=== PATIENT | female | born 1990 | race Caucasian/White ===

== ENCOUNTER 2017-11-22 13:23 | Emergency (ER) | payer BC ==
[~2017-11-22] VITALS: Ht 165.1 cm; Wt 146.7 kg
[~2017-11-22 13:23] MED LIST: ALBUAER19 INH; LEVOIUD
[2017-11-22 13:26] VITALS: TEMP 36.4; Ht 165.1 cm; Wt 146.7 kg
[2017-11-22] MEDS ORDERED: SODIUM CHLORIDE 0.9% 1000ML 1,000 ML IV STA (13:43)
[2017-11-22] MEDS ORDERED: ONDANSETRON INJ 2 MG/ML 2 ML VIAL IV STA (13:43)
[2017-11-22] MEDS ORDERED: MoRPHine SULFATE 10 MG/ML CARP/VIAL IV PRN (13:45)
[2017-11-22] MEDS ORDERED: MoRPHine SULFATE 2 MG/ML CARP ONE (13:47)
[2017-11-22] MEDS ORDERED: ONDANSETRON INJ 2 MG/ML 2 ML VIAL ONE (13:47)
[2017-11-22] MEDS ORDERED: MoRPHine SULFATE 4 MG/ML 1 ML CARP\\VIAL ONE (13:47)
--- NOTE | 2017-11-22 13:51 | EMERGENCY ROOM VISIT NOTE ---
History Report prepared by Daniela: Cristiana Robbins Under the Supervision of: Dr. Hector Genao M.D. First contact with patient: 13:40 Chief Complaint: KIDNEY STONE Stated Complaint: KIDNEY PAIN, RIGHT, SHARP History of Present Illness The patient is a 27 year old female who presents to the Emergency Room with complaints of sudden severe shooting right flank pain beginning about 30 minutes ago. The patient has nausea and vomiting. She had gastric sleeve surgery 20 days ago. She denies any complications since the surgery. The patient has a history of kidney stones. Her last kidney stone was about 9 months ago. She states her pain feels similar to when she has had kidney stones in the past. The patient is not allowed to have nsaids since her surgery. She denies any chance of . Source of History: patient Onset: 30 minutes ago Position: other (right flank) Symptom Intensity: severe Quality: other (shooting) Timing: other (sudden) Associated Symptoms: + nausea, + vomiting Review of Systems See HPI for pertinent positives & negatives. A total of 10 systems reviewed and were otherwise negative. Past Medical & Surgical Medical Problems: (1) Cyst of ovary (2) IBS (irritable bowel syndrome) (3) Intractable nausea and vomiting (4) Kidney stones (5) Pneumonia Surgical Problems: (1) History of cholecystectomy (2) Gattman Teeth Removal Family History FH: cancer FH: heart disease Hypertension Kidney disease Kidney stones Social History Smoking Status: Never Smoker Alcohol Use: occasionally Marital Status: in relationship Housing Status: lives with significant other Occupation Status: employed Current/Historical Medications Scheduled Adalimumab (Humira Pen), 1 DOSE INJ WK Calcium Carbonate-Vitamin D (Calcium + D), 1 TAB PO DAILY Cholecalciferol (Vitamin D), 5,000 UNITS PO DAILY Multivitamin (Multivitamin), 1 TAB PO DAILY Ondasetron Odt (Zofran Odt), 4 MG SL Q6H Pantoprazole (Pantoprazole Sodium), 40 MG PO DAILY Pediatric Multiple Vitamins W/ (Flintstones Plus Iron), 1 TAB PO DAILY Scheduled PRN Albuterol Hfa (Ventolin Hfa), 2-4 PUFFS INH Q6H PRN for SOB/Wheezing Oxycodone Ir (Roxicodone Ir), 1-2 TAB PO Q4H PRN for Pain Miscellaneous Medications Levonorgestrel (Iud) (Mirena), 1 DOSE Allergies Coded Allergies: NO KNOWN DRUG ALLERGIES (Verified Allergy, Mild, ., 11/22/17) Banana (Unverified Allergy, Unknown, ., 11/22/17) Uncoded Allergies: SEAFOOD (Allergy, Severe, ANAPHYLAXIS, 08/18/13) Physical Exam Vital Signs Date Time Temp Pulse Resp B/P (MAP) Pulse Ox O2 Delivery O2 Flow Rate FiO2 11/22/17 14:50 79 16 116/70 94 Room Air 11/22/17 14:39 94 Room Air 11/22/17 14:38 74 18 109/67 93 Room Air 11/22/17 13:26 36.4 82 18 164/94 99 Room Air Physical Exam GENERAL: Patient is in significant distress secondary to pain. HEENT: No acute trauma, normocephalic atraumatic, mucous membranes moist, no nasal congestion, no scleral icterus. NECK: No stridor, no adenopathy, no meningismus, trachea is midline. LUNGS: Clear to auscultation bilaterally, no wheeze, no rhonchi, breath sounds equal. HEART: Without murmurs gallops or rubs, regular rate and rhythm. ABDOMEN: Soft, nontender, bowel sounds positive, no hernias, no peritonitis. BACK: Right flank discomfort with percussion. EXTREMITIES: No cyanosis or edema, full range of motion of all the joints without pain or difficulty, no signs for acute trauma. NEUROLOGIC: Oriented x 3, no acute motor or sensory deficits, no focal weakness. SKIN: No rash, no jaundice, no diaphoresis. Medical Decision & Procedures ER Provider Diagnostic Interpretation: Radiology results as stated below per my review and radiologist interpretation: ABD/PELVIS WITHOUT FOR STONE FINDINGS: Slotter Operator topogram: Cholecystectomy clips. Lung bases: Minimal basilar opacities, likely atelectasis. Normal heart size. No pericardial or pleural effusion. Liver: Normal morphology. Density consistent with hepatic steatosis. Biliary: No gross biliary ductal dilatation allowing for noncontrast technique. Gallbladder surgically absent. Pancreas: Mild parenchymal atrophy. Spleen: Normal noncontrast appearance. Adrenal glands: Normal noncontrast appearance. Kidneys and ureters: Normal noncontrast appearance of the renal parenchyma. No nephrolithiasis. Mild right pelvocaliectasis in comparison to the left. A punctate right ureteral calculus (series 3 image 252) is at the level of L4. No significant distention of the right proximal ureter. Left ureter is normal.. Bladder: Normal. Pelvic organs: An intrauterine device is in place. A metallic foreign body in the left adnexa is unchanged from prior. Normal noncontrast appearance of the ovaries. Bowel: Normal appendix. No bowel obstruction. Postsurgical changes of gastric sleeve. The gastric remnant is distended with soft tissue density material. No gas is noted within the gastric remnant to suggest a gastrogastric fistula. No evidence of leak. Peritoneal cavity: No free fluid or intraperitoneal gas. Lymph nodes: No gross lymphadenopathy allowing for noncontrast technique. Vasculature: Normal noncontrast appearance. Abdominal wall: Small fat-containing umbilical hernia. Postsurgical changes with several port sites evident in the upper abdomen. Musculoskeletal: 10 mm of grade 2 anterolisthesis of L4 on L5 secondary to bilateral pars defects of L4. IMPRESSION: 1. Obstructing punctate proximal right ureteral calculus with minimal right hydronephrosis. 2. Postsurgical changes of gastric sleeve. The gastric remnant is distended with soft tissue density material. This may represent postsurgical hematoma or secretions. No evidence of leak or gastrogastric fistula. 3. Hepatic steatosis. Electronically signed by: Angel Johnston M.D. Laboratory Results 11/22/17 13:39 11/22/17 13:39 Test 11/22/17 13:39 11/22/17 14:35 11/22/17 14:57 Red Blood Count 4.29 M/uL (4.2-5.4) Mean Corpuscular Volume 90.4 fL (80-100) Mean Corpuscular Hemoglobin 29.6 pg (25-34) Mean Corpuscular Hemoglobin Concent 32.7 g/dl (32-36) RDW Standard Deviation 49.7 fL (36.4-46.3) RDW Coefficient of Variation 15.5 % (11.5-14.5) Mean Platelet Volume 9.3 fL (7.4-10.4) Anion Gap 9.0 mmol/L (3-11) Est Creatinine Clear Calc Drug Dose 142.8 ml/min Estimated GFR () 106.6 Estimated GFR (Non- 91.9 BUN/Creatinine Ratio 8.9 (10-20) Calcium Level 9.0 mg/dl (8.5-10.1) Total Bilirubin 0.6 mg/dl (0.2-1) Aspartate Amino Transf (AST/SGOT) 26 U/L (15-37) Alanine Aminotransferase (ALT/SGPT) 33 U/L (12-78) Alkaline Phosphatase 69 U/L (45-117) Total Protein 7.8 gm/dl (6.4-8.2) Albumin 3.8 gm/dl (3.4-5.0) Globulin 4.0 gm/dl (2.5-4.0) Albumin/Globulin Ratio 1.0 (0.9-2) Lipase 130 U/L (73-393) Urine Color DK YELLOW Urine Appearance CLOUDY (CLEAR) Urine pH 5.0 (4.5-7.5) Urine Specific [place] 1.027 (1.000-1.030) Urine Protein 1+ (NEG) Urine Glucose (UA) NEG (NEG) Urine Ketones 3+ (NEG) Urine Occult Blood 3+ (NEG) Urine Nitrite NEG (NEG) Urine Bilirubin NEG (NEG) Urine Urobilinogen NEG (NEG) Urine Leukocyte Esterase TRACE (NEG) Laboratory results reviewed by me. Urine dip shows large ketones, 250 of blood , urine negative, and no signs of infection. Medications Administered Medications (Trade) Dose Ordered Sig/Tracey Route Start Time Stop Time Status Last Admin Dose Admin Ondansetron HCl (Zofran Inj) 4 mg NOW STAT IV 11/22/17 13:43 11/22/17 13:46 DC 11/22/17 13:49 4 MG Sodium Chloride 1,000 ml @ 999 mls/hr Q1H1M STAT IV 11/22/17 13:43 11/22/17 14:43 DC 11/22/17 13:53 999 MLS/HR Morphine Sulfate (MoRPHine SULFATE INJ) 6 mg Q15M PRN IV 11/22/17 13:45 12/06/17 13:44 11/22/17 14:49 6 MG Morphine Sulfate (MoRPHine SULFATE INJ) 4 mg STK-MED ONCE .ROUTE 11/22/17 13:47 11/22/17 13:48 DC 11/22/17 13:50 4 MG Morphine Sulfate (MoRPHine SULFATE INJ) 2 mg STK-MED ONCE .ROUTE 11/22/17 13:47 11/22/17 13:48 DC 11/22/17 13:50 2 MG ED Course 1341: The patient was evaluated in room C8. A complete history and physical exam was performed. 1343: Ordered Sodium Chloride 1000 ml @ 999 mls/hr IV, Zofran Inj 4 mg IV. 1345: Ordered Morphine Sulfate 6 mg IV. 1347: Ordered Zofran Inj 4 mg .ROUTE, Morphine Sulfate 2 mg .ROUTE, Morphine Sulfate 4 mg .ROUTE. 1452: The patient is feeling better and would like to go home. 1507: Reevaluated the patient. Discussed results and discharge instructions: She verbalized understanding and agreement. The patient is ready for discharge. Medical Decision Differential diagnoses include: Renal colic, bowel obstruction, UTI, pyelonephritis, renal failure, dehydration, musculoskeletal. There is no leukocytosis or concerning anemia. Urinalysis shows blood and some ketones consistent with the vomiting and stone passage, no signs for infection. Urine testing was negative. No significant electrolyte abnormality or kidney failure. There is no hepatitis or pancreatitis. Abdominal and pelvis CT shows a small right sided ureteral stone causing some mild hydronephrosis. The gastric sleeve over the stomach appears to be in position. The patient received IV saline, IV Zofran and IV morphine. She is feeling more comfortable. The patient is passing a very small right ureteral stone. She has dealt with this before. She does feel comfortable with discharge, I think this is reasonable. She will be on oxycodone, Zofran. She will strain all her urine. She will return for uncontrolled pain, vomiting or fever. She can follow with urology as an outpatient. [place] Drug Monitoring Program Search Results: patient reviewed within database Drug Monitoring Findings: Patient had recent hydrocodone prescription which is likely from recent gastric sleeve surgery. Medication Reconcilliation Current Medication List: was personally reviewed by me Blood Pressure Screening Patient's blood pressure: Elevated blood pressure Blood pressure disposition: Elevated BP felt to be situational Impression Primary Impression: Renal colic Additional Impression: Vomiting Scribe Attestation The scribe's documentation has been prepared under my direction and personally reviewed by me in its entirety. I confirm that the note above accurately reflects all work, treatment, procedures, and medical decision making performed by me. Departure Information Dispostion Home / Self-Care Prescriptions Ondasetron Odt (ZOFRAN ODT) 4 Mg Tab 4 MG SL Q6H for Nausea, #12 TAB Prov: Hector Genao M.D. 11/22/17 Oxycodone Ir (Roxicodone Ir) 5 Mg Tab 1-2 TAB PO Q4H Y for Pain, #8 TAB Prov: Hector Genao M.D. 11/22/17 Referrals Johana Jamison (PCP) Forms HOME CARE DOCUMENTATION FORM, IMPORTANT VISIT INFORMATION Patient Instructions [facility] Additional Instructions oxy ir 1-2 tab every 4 hours for pain tylenol for pain fluids rest strain all the urine zofran 1 tab every 6 hours for nausea return for fever, vomiting or uncontrolled pain follow with urology this week Problem Qualifiers
[2017-11-22 13:53] LABS: HEMATOCRIT 38.8 % (37-47); MEAN CELL VOLUME 90.4 fL (80-100); MEAN CORPUSCULAR HEMOGLOBIN 29.6 pg (25-34); MEAN CORPUSCULAR HGB CONC 32.7 g/dl (32-36); MEAN PLATELET VOLUME 9.3 fL (7.4-10.4); PLATELET COUNT 416 K/uL (130-400); RED BLOOD COUNT 4.29 M/uL (4.2-5.4); WHITE BLOOD COUNT 7.79 K/uL (4.8-10.8)
[2017-11-22 14:11] LABS: BUN/CREATININE RATIO 8.9 (10-20); CREATININE 0.86 mg/dl (0.60-1.20); POTASSIUM 3.7 mmol/L (3.5-5.1)
[2017-11-22] MEDS ORDERED: CHOL1TAB42 PO (14:35)
[2017-11-22] MEDS ORDERED: PEDICHW44 PO (14:35)
[2017-11-22] MEDS ORDERED: PANT40TA2 PO (14:35)
[2017-11-22] MEDS ORDERED: ADAL40KI INJ (14:35)
[2017-11-22] MEDS ORDERED: MULT-506 PO (14:35)
[2017-11-22] MEDS ORDERED: CALC600T9 PO (14:35)
[2017-11-22] MEDS ORDERED: VNTHFA/IN INH (14:35)
--- NOTE | 2017-11-22 14:36 | DIAGNOSTIC IMAGING REPORT ---
ABD/PELVIS WITHOUT FOR STONE CLINICAL HISTORY: 27 years-old Female presenting with EVALUATE FLANK PAIN/HEMATURIA that started 30 minutes ago, accompanied by nausea and vomiting, history of kidney stones, history of gastric sleeve surgery early October. TECHNIQUE: Multidetector CT of the abdomen and pelvis was performed without the use of intravenous contrast. IV contrast: None. A dose lowering technique was used consistent with the principles of ALARA (as low as reasonably achievable). COMPARISON: 01/10/2016. CT DOSE (mGy.cm): The estimated cumulative dose is 1853.08 mGy.cm. FINDINGS: Legal Biller topogram: Cholecystectomy clips. Lung bases: Minimal basilar opacities, likely atelectasis. Normal heart size. No pericardial or pleural effusion. Liver: Normal morphology. Density consistent with hepatic steatosis. Biliary: No gross biliary ductal dilatation allowing for noncontrast technique. Gallbladder surgically absent. Pancreas: Mild parenchymal atrophy. Spleen: Normal noncontrast appearance. Adrenal glands: Normal noncontrast appearance. Kidneys and ureters: Normal noncontrast appearance of the renal parenchyma. No nephrolithiasis. Mild right pelvocaliectasis in comparison to the left. A punctate right ureteral calculus (series 3 image 252) is at the level of L4. No significant distention of the right proximal ureter. Left ureter is normal.. Bladder: Normal. Pelvic organs: An intrauterine device is in place. A metallic foreign body in the left adnexa is unchanged from prior. Normal noncontrast appearance of the ovaries. Bowel: Normal appendix. No bowel obstruction. Postsurgical changes of gastric sleeve. The gastric remnant is distended with soft tissue density material. No gas is noted within the gastric remnant to suggest a gastrogastric fistula. No evidence of leak. Peritoneal cavity: No free fluid or intraperitoneal gas. Lymph nodes: No gross lymphadenopathy allowing for noncontrast technique. Vasculature: Normal noncontrast appearance. Abdominal wall: Small fat-containing umbilical hernia. Postsurgical changes with several port sites evident in the upper abdomen. Musculoskeletal: 10 mm of grade 2 anterolisthesis of L4 on L5 secondary to bilateral pars defects of L4. IMPRESSION: 1. Obstructing punctate proximal right ureteral calculus with minimal right hydronephrosis. 2. Postsurgical changes of gastric sleeve. The gastric remnant is distended with soft tissue density material. This may represent postsurgical hematoma or secretions. No evidence of leak or gastrogastric fistula. 3. Hepatic steatosis. Electronically signed by: Angel Johnston M.D. 11/22/2017 2:34 PM Dictated Date/Time: 11/22/2017 2:26 PM
[2017-11-22 14:39] VITALS: O2SAT 94
[2017-11-22 14:50] VITALS: BP 116/70; PULSE 79; O2SAT 94
[2017-11-22 14:53] LABS: URINE APPEARANCE CLOUDY (CLEAR); URINE COLOR DK YELLOW; URINE EPITHELIAL CELL AUTO >30 /lpf (0-5); URINE NITRITE NEG (NEG); URINE SPECIFIC GRAVITY 1.027 (1.000-1.030); UROBILINOGEN NEG (NEG); ZZUR CULT IF INDIC CLEAN CATCH YES
[2017-11-22 14:54] LABS: MANUAL MICROSCOPIC REQUIRED? NO; REVIEW REQ? YES
[2017-11-22 14:55] LABS: URINE BILIRUBIN NEG (NEG)
[2017-11-22] MEDS ORDERED: ONDANSETRON HOME PACK 4MG OD TAB PO ONE (15:00)
[2017-11-22] MEDS ORDERED: OXYCODONE IR HOME PACK PO ONE ×2 (15:00)
[2017-11-22] MEDS ORDERED: ONDA4TAB10 SL (15:02)
[2017-11-22] MEDS ORDERED: OXYC1TAB3 PO (15:02)
== END 2017-11-22 15:14 | disposition home or self-care (01) ==
LOC: C.EDB 13:24 → C.EDC 15:14
DX: N13.2 Hydronephrosis with renal and ureteral calculous obstruction (principal); K76.0 Fatty (change of) liver, not elsewhere classified; Z98.84 Bariatric surgery status; K58.9 Irritable bowel syndrome, unspecified

== ENCOUNTER 2018-02-14 06:23 | Emergency (ER) | payer BC ==
[~2018-02-14] VITALS: Ht 165.1 cm; Wt 130.0 kg
[~2018-02-14 06:23] MED LIST changes: +ADAL40KI INJ; -ALBUAER19 INH; +CALC600T9 PO; +CHOL1TAB42 PO; +LEVO1IUD2 INT UTER; -LEVOIUD; +MULT-506 PO; +ONDA4TAB10 SL; +OXYC1TAB3 PO; +PANT40TA2 PO; +PEDICHW44 PO; +VNTHFA/IN INH
[2018-02-14 06:26] VITALS: TEMP 36.6; Ht 165.1 cm; Wt 130.0 kg
[2018-02-14] MEDS ORDERED: KETOROLAC TROMETHAMINE 30 MG/ML VIAL IV STA (06:37)
[2018-02-14] MEDS ORDERED: ONDANSETRON INJ 2 MG/ML 2 ML VIAL IV STA (06:37)
[2018-02-14] MEDS ORDERED: SODIUM CHLORIDE 0.9% 1000ML 1,000 ML IV STA (06:37)
[2018-02-14 06:50] LABS: BASO % 0.5 %; BASO ABS # 0.05 K/uL (0-0.2); EOS % 5.2 %; HEMATOCRIT 43.9 % (37-47); HEMOGLOBIN 14.1 g/dL (12.0-16.0); IG# 0.02 K/uL (0.00-0.02); LYMPH % 23.9 %; MEAN CELL VOLUME 85.7 fL (80-100); MEAN CORPUSCULAR HEMOGLOBIN 27.5 pg (25-34); MEAN CORPUSCULAR HGB CONC 32.1 g/dl (32-36); MEAN PLATELET VOLUME 10.2 fL (7.4-10.4); MONO % 5.4 %; MONO ABS # 0.52 K/uL (0.11-0.59); NEUT % 64.8 %; NEUT ABS # 6.25 K/uL (1.4-6.5); PLATELET COUNT 326 K/uL (130-400); RED CELL DISTRIBUTION WIDTH CV 17.5 % (11.5-14.5); RED CELL DISTRIBUTION WIDTH SD 55.3 fL (36.4-46.3); WHITE BLOOD COUNT 9.64 K/uL (4.8-10.8)
[2018-02-14 07:07] LABS: ALBUMIN 3.8 gm/dl (3.4-5.0); CALCIUM 9.5 mg/dl (8.5-10.1); CREATININE 0.69 mg/dl (0.60-1.20)
[2018-02-14 07:10] LABS: TOTAL PROTEIN 7.8 gm/dl (6.4-8.2)
--- NOTE | 2018-02-14 07:28 | DIAGNOSTIC IMAGING REPORT ---
ABD/PELVIS WITHOUT FOR STONE CLINICAL HISTORY: 27 years-old Female presenting with flank pain. TECHNIQUE: Multidetector CT of the abdomen and pelvis was performed without the use of intravenous contrast. IV contrast: None. A dose lowering technique was used consistent with the principles of ALARA (as low as reasonably achievable). COMPARISON: 11/22/2017. CT DOSE (mGy.cm): The estimated cumulative dose is 2095.96 mGy.cm. FINDINGS: Project Management Intern topogram: Unremarkable. Lung bases: Lungs and pleural spaces clear. Normal heart size. No pericardial or pleural effusion. Liver: Normal morphology. Density consistent with hepatic steatosis. Biliary: No gross biliary ductal dilatation allowing for noncontrast technique. Gallbladder surgically absent. Pancreas: Normal noncontrast appearance. Spleen: Normal noncontrast appearance. Splenule noted. Adrenal glands: Normal noncontrast appearance. Kidneys and ureters: Minimal right pelvocaliectasis similar to prior exam. Persistent punctate calculus in the proximal right ureter, which does not appear to be obstructing (series 3 image 217). No additional renal or ureteral calculus. Bladder: Incompletely evaluated secondary to underdistention. Pelvic organs: An intrauterine device is in place. A surgical clip is noted in the region of the left adnexa. Bowel: Normal appendix. No bowel obstruction. Postsurgical changes of gastric sleeve procedure. There has also been resolution of the previously noted presumed hematoma in the operative bed at the site of the previously supposed gastric remnant. Only a small hyperdense collection measuring less than 2 cm remains. No bowel obstruction. Peritoneal cavity: No free fluid or intraperitoneal gas. Lymph nodes: No gross lymphadenopathy allowing for noncontrast technique. Vasculature: Normal noncontrast appearance. Abdominal wall: Small fat-containing umbilical hernia. Musculoskeletal: Grade 2 anterolisthesis of L4 on L5 secondary to bilateral pars defects of L4.. IMPRESSION: 1. Near-complete resolution of the previously noted presumed hematoma in the gastric sleeve operative bed. No bowel obstruction or other complication of gastric sleeve procedure. 2. Persistent punctate proximal right ureteral calculus, which does not appear obstructing. No right hydronephrosis. Chronic minimal right pelvocaliectasis. No additional renal or ureteral calculus. 3. Hepatic steatosis. Electronically signed by: Angel Johnston M.D. 02/14/2018 7:27 AM Dictated Date/Time: 02/14/2018 7:18 AM
[2018-02-14] MEDS ORDERED: ONDA4TAB10 SL (07:42)
--- NOTE | 2018-02-14 07:49 | EMERGENCY ROOM VISIT NOTE ---
History Report prepared by Alison[place]keke: Burke Scott Under the Supervision of: Dr. Bill Cota D.O. First contact with patient: 06:34 Chief Complaint: FLANK PAIN Stated Complaint: RT KIDNEY PAIN,NAUSEA,VOMITING History of Present Illness The patient is a 27 year old female who presents to the Emergency Room with complaints of constant right flank pain beginning 6.5 hours ago. She has a history of kidney stones and states that her current symptoms feel like a kidney stone. The patient also complains of diarrhea over the past few days, nausea and vomiting. Her nausea and vomiting began with her pain. Her pain began suddenly. She denies modifying factors. The patient denies fevers. She has a history of a recent vertical sleeve bariatric surgery occurring three months ago. Source of History: patient Onset: 6.5 hours ago Position: other (right flank) Timing: constant Modifying Factors (Worsening): other (none) Modifying Factors (Relieving): other (none) Associated Symptoms: + nausea, + vomiting, + diarrhea, No fevers Review of Systems See HPI for pertinent positives & negatives. A total of 10 systems reviewed and were otherwise negative. Past Medical & Surgical Medical Problems: (1) Cyst of ovary (2) IBS (irritable bowel syndrome) (3) Intractable nausea and vomiting (4) Kidney stones (5) Pneumonia Surgical Problems: (1) History of cholecystectomy (2) [place] Teeth Removal Family History FH: cancer FH: heart disease Hypertension Kidney disease Kidney stones Social History Smoking Status: Never Smoker Alcohol Use: occasionally Marital Status: in relationship Housing Status: lives with significant other Occupation Status: employed Current/Historical Medications Scheduled Adalimumab (Humira Pen), 1 DOSE INJ WK Calcium Carbonate-Vitamin D (Calcium + D), 1 TAB PO DAILY Cholecalciferol (Vitamin D), 5,000 UNITS PO DAILY Levonorgestrel (Iud) (Mirena), 1 DOSE INT UTER CONTINOUS Multivitamin (Multivitamin), 1 TAB PO DAILY Ondasetron Odt (Zofran Odt), 4 MG SL Q6H Pantoprazole (Pantoprazole Sodium), 40 MG PO DAILY Pediatric Multiple Vitamins W/ (Flintstones Plus Iron), 1 TAB PO DAILY Scheduled PRN Albuterol Hfa (Ventolin Hfa), 2 PUFFS INH Q6H PRN for SOB/Wheezing Allergies Coded Allergies: NO KNOWN DRUG ALLERGIES (Verified Allergy, Mild, ., 02/14/18) Banana (Unverified Allergy, Unknown, ., 02/14/18) Uncoded Allergies: SEAFOOD (Allergy, Severe, ANAPHYLAXIS, 08/18/13) Physical Exam Vital Signs Date Time Temp Pulse Resp B/P (MAP) Pulse Ox O2 Delivery O2 Flow Rate FiO2 02/14/18 07:24 55 16 110/60 94 Room Air 02/14/18 06:26 36.6 72 20 121/89 97 Room Air Physical Exam CONSTITUTIONAL/VITAL SIGNS: Reviewed / noted above. GENERAL: Non-toxic in appearance. INTEGUMENTARY: Warm, dry, and [place]. HEAD: Normocephalic. EYES: without scleral icterus or trauma. ENT/OROPHARYNX: clear and moist. LYMPHADENOPATHY/NECK: Is supple without lymphadenopathy or meningismus. RESPIRATORY: Lungs clear and equal. CARDIOVASCULAR: Regular rate and rhythm. GI/ABDOMEN: Soft and nontender. No organomegaly or pulsatile mass. No rebound or guarding. Normal bowel sounds. EXTREMITIES: Warm and well perfused. BACK: Right CVA tenderness. NEUROLOGICAL: Intact without focal deficits. PSYCHIATRIC: normal affect. MUSCULOSKELETAL: Normally developed with good muscle tone. Medical Decision & Procedures ER Provider Diagnostic Interpretation: Radiology results as stated below per my review and radiologist interpretation: ABD/PELVIS WITHOUT FOR STONE FINDINGS: [employer] Director topogram: Unremarkable. Lung bases: Lungs and pleural spaces clear. Normal heart size. No pericardial or pleural effusion. Liver: Normal morphology. Density consistent with hepatic steatosis. Biliary: No gross biliary ductal dilatation allowing for noncontrast technique. Gallbladder surgically absent. Pancreas: Normal noncontrast appearance. Spleen: Normal noncontrast appearance. Splenule noted. Adrenal glands: Normal noncontrast appearance. Kidneys and ureters: Minimal right pelvocaliectasis similar to prior exam. Persistent punctate calculus in the proximal right ureter, which does not appear to be obstructing (series 3 image 217). No additional renal or ureteral calculus. Bladder: Incompletely evaluated secondary to underdistention. Pelvic organs: An intrauterine device is in place. A surgical clip is noted in the region of the left adnexa. Bowel: Normal appendix. No bowel obstruction. Postsurgical changes of gastric sleeve procedure. There has also been resolution of the previously noted presumed hematoma in the operative bed at the site of the previously supposed gastric remnant. Only a small hyperdense collection measuring less than 2 cm remains. No bowel obstruction. Peritoneal cavity: No free fluid or intraperitoneal gas. Lymph nodes: No gross lymphadenopathy allowing for noncontrast technique. Vasculature: Normal noncontrast appearance. Abdominal wall: Small fat-containing umbilical hernia. Musculoskeletal: Grade 2 anterolisthesis of L4 on L5 secondary to bilateral pars defects of L4.. IMPRESSION: 1. Near-complete resolution of the previously noted presumed hematoma in the gastric sleeve operative bed. No bowel obstruction or other complication of gastric sleeve procedure. 2. Persistent punctate proximal right ureteral calculus, which does not appear obstructing. No right hydronephrosis. Chronic minimal right pelvocaliectasis. No additional renal or ureteral calculus. 3. Hepatic steatosis. Electronically signed by: Angel Johnston M.D. 02/14/2018 7:27 AM Laboratory Results 02/14/18 06:35 Red Blood Count 5.12, Mean Corpuscular Volume 85.7, Mean Corpuscular Hemoglobin 27.5, Mean Corpuscular Hemoglobin Concent 32.1, Mean Platelet Volume 10.2, Neutrophils (%) (Auto) 64.8, Lymphocytes (%) (Auto) 23.9, Monocytes (%) (Auto) 5.4, Eosinophils (%) (Auto) 5.2, Basophils (%) (Auto) 0.5, Neutrophils # (Auto) 6.25, Lymphocytes # (Auto) 2.30, Monocytes # (Auto) 0.52, Eosinophils # (Auto) 0.50, Basophils # (Auto) 0.05 02/14/18 06:35 Test 02/14/18 06:35 02/14/18 06:40 White Blood Count 9.64 K/uL (4.8-10.8) Red Blood Count 5.12 M/uL (4.2-5.4) Hemoglobin 14.1 g/dL (12.0-16.0) Hematocrit 43.9 % (37-47) Mean Corpuscular Volume 85.7 fL (80-100) Mean Corpuscular Hemoglobin 27.5 pg (25-34) Mean Corpuscular Hemoglobin Concent 32.1 g/dl (32-36) Platelet Count 326 K/uL (130-400) Mean Platelet Volume 10.2 fL (7.4-10.4) Neutrophils (%) (Auto) 64.8 % Lymphocytes (%) (Auto) 23.9 % Monocytes (%) (Auto) 5.4 % Eosinophils (%) (Auto) 5.2 % Basophils (%) (Auto) 0.5 % Neutrophils # (Auto) 6.25 K/uL (1.4-6.5) Lymphocytes # (Auto) 2.30 K/uL (1.2-3.4) Monocytes # (Auto) 0.52 K/uL (0.11-0.59) Eosinophils # (Auto) 0.50 K/uL (0-0.5) Basophils # (Auto) 0.05 K/uL (0-0.2) RDW Standard Deviation 55.3 fL (36.4-46.3) RDW Coefficient of Variation 17.5 % (11.5-14.5) Immature Granulocyte % (Auto) 0.2 % Immature Granulocyte # (Auto) 0.02 K/uL (0.00-0.02) Anion Gap 10.0 mmol/L (3-11) Est Creatinine Clear Calc Drug Dose 165.2 ml/min Estimated GFR () 137.3 Estimated GFR (Non- 118.5 BUN/Creatinine Ratio 15.3 (10-20) Calcium Level 9.5 mg/dl (8.5-10.1) Total Bilirubin 0.4 mg/dl (0.2-1) Direct Bilirubin 0.1 mg/dl (0-0.2) Aspartate Amino Transf (AST/SGOT) 15 U/L (15-37) Alanine Aminotransferase (ALT/SGPT) 23 U/L (12-78) Alkaline Phosphatase 81 U/L (45-117) Total Protein 7.8 gm/dl (6.4-8.2) Albumin 3.8 gm/dl (3.4-5.0) Lipase 82 U/L (73-393) Urine Color DK YELLOW Urine Appearance CLOUDY (CLEAR) Urine pH 5.0 (4.5-7.5) Urine Specific [place] 1.036 (1.000-1.030) Urine Protein 1+ (NEG) Urine Glucose (UA) NEG (NEG) Urine Ketones 1+ (NEG) Urine Occult Blood 3+ (NEG) Urine Nitrite NEG (NEG) Urine Bilirubin NEG (NEG) Urine Urobilinogen NEG (NEG) Urine Leukocyte Esterase NEG (NEG) Urine WBC (Auto) 1-5 /hpf (0-5) Urine RBC (Auto) >30 /hpf (0-4) Urine Hyaline Casts (Auto) 1-5 /lpf (0-5) Urine Epithelial Cells (Auto) >30 /lpf (0-5) Urine Bacteria (Auto) NEG (NEG) Urine Crystals CALCIUM OXALATE (NONE Urine Test NEG (NEG) Laboratory results as stated above per my review. Medications Administered Medications (Trade) Dose Ordered Sig/Tracey Route Start Time Stop Time Status Last Admin Dose Admin Sodium Chloride 1,000 ml @ 999 mls/hr Q1H1M STAT IV 02/14/18 06:37 02/14/18 07:37 DC 02/14/18 07:03 999 MLS/HR Ondansetron HCl (Zofran Inj) 4 mg NOW STAT IV 02/14/18 06:37 02/14/18 06:39 DC 02/14/18 07:00 4 MG Ketorolac Tromethamine (Toradol Inj) 30 mg NOW STAT IV 02/14/18 06:37 02/14/18 06:39 DC 02/14/18 07:01 30 MG ED Course 0641: Previous medical records were reviewed. The patient was evaluated in room A3. A complete history and physical examination was performed. Ordered Toradol Inj 30 mg IV, Zofran Inj 4 mg IV, Sodium Chloride 1000 ml @ 999 mls/hr IV. 0745: On reevaluation, the patient is resting. I discussed the results and findings with the patient. She verbalized agreement of the treatment plan. The patient was discharged home. Medical Decision Differential diagnosis: Etiologies such as renal colic, appendicitis, diverticulitis, mesenteric ischemia, aortic pathology, infections, inflammatory bowel disease, PUD, biliary pathology, UTI, as well as others were entertained. This is a 27-year-old female who presents to the ED with a chief complaint of right sided flank pain. The patient also reported some nausea and vomiting that started with the right sided flank pain around midnight last night. She also stated that she had some diarrhea which last occurred around 6 PM last night. The patient reports that nothing makes her symptoms better or worse. Her vital signs are normal. Her physical exam revealed some right-sided CVA tenderness. A CT scan of the abdomen pelvis reveals a persistent right ureteral calculus without obstructive changes and resolution of a hematoma related to her bariatric surgery in October. CBC and complete metabolic panel were normal, lipase was negative and a urine revealed 1+ ketones, calcium oxalate crystals and test was negative. The patient was treated with IV fluids, IV Toradol and IV Zofran. She was told the results of the test. The patient reports feeling better. She may have passed some small stones. She was discharged with a prescription for Zofran. She was told to take Tylenol as needed for any residual discomfort. Medication Reconcilliation Current Medication List: was personally reviewed by me Blood Pressure Screening Patient's blood pressure: Normal blood pressure Blood pressure disposition: Did not require urgent referral Impression Primary Impression: Right flank pain Additional Impression: Nausea and vomiting Scribe Attestation The scribe's documentation has been prepared under my direction and personally reviewed by me in its entirety. I confirm that the note above accurately reflects all work, treatment, procedures, and medical decision making performed by me. Departure Information Dispostion Home / Self-Care Prescriptions Ondasetron Odt (ZOFRAN ODT) 4 Mg Tab 4 MG SL Q6H for Nausea, #20 TAB Prov: Bill Cota D.O. 02/14/18 Referrals Johana Jamison (PCP) Patient Instructions My [facility] Additional Instructions Zofran: Allow one tablet to dissolve under the tongue every 6 hours as needed for nausea or vomiting. Take Tylenol as needed for any residual discomfort. Follow-up with your doctor for further care and evaluation in 1-5 days. Return to the emergency department for worsening or new symptoms or any concerns. You have been examined and treated today on an emergency basis only. This is not a substitute for, or an effort to provide, complete comprehensive medical care. It is impossible to recognize and treat all injuries or illnesses in a single emergency department visit. It is therefore important that you follow up closely with your doctor. Call as soon as possible for an appointment. Problem Qualifiers
[2018-02-14 08:22] VITALS: BP 117/63; PULSE 62; O2SAT 95
== END 2018-02-14 08:23 | disposition home or self-care (01) ==
LOC: C.EDB 06:24 → C.EDA 08:23
DX: N20.1 Calculus of ureter (principal); R19.7 Diarrhea, unspecified; K58.9 Irritable bowel syndrome, unspecified; Z97.5 Presence of (intrauterine) contraceptive device; Z90.49 Acquired absence of other specified parts of digestive tract; Z87.442 Personal history of urinary calculi; Z87.01 Personal history of pneumonia (recurrent); Z82.49 Family history of ischemic heart disease and other diseases of the circulatory system; Z84.1 Family history of disorders of kidney and ureter; Z91.013 Allergy to seafood

== ENCOUNTER → 2018-04-15 | Outpatient (CLI) | payer BC ==
[~2018-04-15] MED LIST changes: -OXYC1TAB3 PO
[2018-04-15 10:28] LABS: BASO % 0.6 %; BASO ABS # 0.05 K/uL (0-0.2); EOS % 2.6 %; EOS ABS # 0.21 K/uL (0-0.5); HEMATOCRIT 43.7 % (37-47); HEMOGLOBIN 14.5 g/dL (12.0-16.0); IG# 0.02 K/uL (0.00-0.02); LYMPH % 25.5 %; LYMPH ABS # 2.04 K/uL (1.2-3.4); MEAN CELL VOLUME 89.2 fL (80-100); MEAN CORPUSCULAR HEMOGLOBIN 29.6 pg (25-34); MEAN CORPUSCULAR HGB CONC 33.2 g/dl (32-36); MEAN PLATELET VOLUME 10.1 fL (7.4-10.4); MONO % 6.4 %; MONO ABS # 0.51 K/uL (0.11-0.59); NEUT % 64.6 %; NEUT ABS # 5.17 K/uL (1.4-6.5); PLATELET COUNT 307 K/uL (130-400); RED CELL DISTRIBUTION WIDTH CV 17.3 % (11.5-14.5); RED CELL DISTRIBUTION WIDTH SD 56.5 fL (36.4-46.3)
[2018-04-15 13:09] LABS: ALBUMIN 3.6 gm/dl (3.4-5.0); ALKALINE PHOSPHATASE 87 U/L (45-117); ALT/SGPT 30 U/L (12-78); AST/SGOT 19 U/L (15-37); BLOOD UREA NITROGEN 4 mg/dl (7-18); CARBON DIOXIDE 26 mmol/L (21-32); CREATININE 0.76 mg/dl (0.60-1.20); GLUCOSE 84 mg/dl (70-99); POTASSIUM 3.4 mmol/L (3.5-5.1); SODIUM 141 mmol/L (136-145); TOTAL PROTEIN 7.7 gm/dl (6.4-8.2)
== END | disposition home or self-care (01) ==
LOC: C.LAB 09:12
PROVIDERS: ATTEND Physician Assistant Surgical
DX: E66.01 Morbid (severe) obesity due to excess calories (principal); Z98.84 Bariatric surgery status

== ENCOUNTER 2018-06-24 11:03 | Emergency (ER) | payer BC ==
[~2018-06-24] VITALS: Ht 167.6 cm; Wt 111.7 kg
[~2018-06-24 11:03] MED LIST changes: -ADAL40KI INJ; -CALC600T9 PO; -CHOL1TAB42 PO; -LEVO1IUD2 INT UTER; -MULT-506 PO; -PEDICHW44 PO; -VNTHFA/IN INH
[2018-06-24 11:09] VITALS: TEMP 36.7; Ht 167.6 cm; Wt 111.7 kg
[2018-06-24] MEDS ORDERED: KETOROLAC TROMETHAMINE 30 MG/ML VIAL IV STA ×2 (11:17→17:22)
[2018-06-24] MEDS ORDERED: ONDANSETRON INJ 2 MG/ML 2 ML VIAL IV STA ×2 (11:17→16:26)
[2018-06-24] MEDS ORDERED: MoRPHine SULFATE 10 MG/ML CARP/VIAL IV STA ×3 (11:17→17:22)
[2018-06-24] MEDS ORDERED: SODIUM CHLORIDE 0.9% 1000ML 2,000 ML IV STA (11:17)
[2018-06-24 11:40] LABS: BASO % 0.5 %; BASO ABS # 0.05 K/uL (0-0.2); EOS % 3.5 %; EOS ABS # 0.35 K/uL (0-0.5); HEMATOCRIT 45.2 % (37-47); HEMOGLOBIN 14.9 g/dL (12.0-16.0); IG# 0.03 K/uL (0.00-0.02); LYMPH ABS # 2.99 K/uL (1.2-3.4); MEAN CORPUSCULAR HEMOGLOBIN 30.7 pg (25-34); MEAN PLATELET VOLUME 10.5 fL (7.4-10.4); MONO % 8.3 %; MONO ABS # 0.83 K/uL (0.11-0.59); NEUT % 57.4 %; NEUT ABS # 5.72 K/uL (1.4-6.5); PLATELET COUNT 306 K/uL (130-400); RED CELL DISTRIBUTION WIDTH CV 14.8 % (11.5-14.5); WHITE BLOOD COUNT 9.97 K/uL (4.8-10.8)
[2018-06-24 12:00] LABS: ALBUMIN 3.5 gm/dl (3.4-5.0); CALCIUM 8.5 mg/dl (8.5-10.1); CREATININE 0.73 mg/dl (0.60-1.20); POTASSIUM 3.9 mmol/L (3.5-5.1); TOTAL PROTEIN 7.4 gm/dl (6.4-8.2)
--- NOTE | 2018-06-24 12:03 | DIAGNOSTIC IMAGING REPORT ---
[facility] CLINICAL HISTORY: RIGHT FLANK PAIN, HX OF STONE pain COMPARISON STUDY: 07/13/2016 FINDINGS: Nonobstructive bowel pattern. Mild nonobstructive small bowel ileus primarily in the left abdominal region. No significant nephrocalcinosis within limitations of overlying bowel content. There is an intrauterine device in position. IMPRESSION: Mild nonobstructive ileus. No acute process. The above report was generated using voice recognition software. It may contain grammatical, syntax or spelling errors. Electronically signed by: Marcio Avalos M.D. 06/24/2018 12:02 PM Dictated Date/Time: 06/24/2018 12:00 PM
--- NOTE | 2018-06-24 13:28 | DIAGNOSTIC IMAGING REPORT ---
RENAL ULTRASOUND HISTORY: RIGHT FLANK PAIN, HX OF STONES COMPARISON: [facility] 06/24/2018. Renal ultrasound 07/13/2016. FINDINGS: Right kidney: 10.6 cm. No hydronephrosis. Normal corticomedullary differentiation and cortical thickness. Left kidney: 11.7 cm. No hydronephrosis. Normal corticomedullary differentiation and cortical thickness. Bladder: No bladder wall thickening. The bilateral ureteral jets were identified. IMPRESSION: Normal renal ultrasound. Electronically signed by: Varun Soliman M.D. 06/24/2018 1:26 PM Dictated Date/Time: 06/24/2018 1:24 PM
[2018-06-24] MEDS ORDERED: LEVO1IUD2 IU (14:01)
[2018-06-24] MEDS ORDERED: PEDICHW44 PO (14:35)
[2018-06-24] MEDS ORDERED: CHOL1TAB42 PO (14:35)
[2018-06-24] MEDS ORDERED: CALC600T9 PO (14:35)
[2018-06-24] MEDS ORDERED: VNTHFA/IN INH (14:35)
[2018-06-24] MEDS ORDERED: ADAL40KI SC (14:35)
[2018-06-24] MEDS ORDERED: MULT-506 PO (14:35)
[2018-06-24] MEDS ORDERED: SODIUM CHLORIDE 0.9% 1000ML 1,000 ML IV STA (16:26)
[2018-06-24] MEDS ORDERED: ONDANSETRON INJ 2 MG/ML 2 ML VIAL ONE (16:27)
[2018-06-24] MEDS ORDERED: BSP/5 PO (17:20)
[2018-06-24] MEDS ORDERED: LXP10 PO (17:20)
[2018-06-24] MEDS ORDERED: ONDA4TAB10 SL (17:25)
[2018-06-24] MEDS ORDERED: OXYC-737 PO (17:25)
--- NOTE | 2018-06-24 17:27 | EMERGENCY ROOM VISIT NOTE ---
ED Visit Note First contact with patient: 11:14 CHIEF COMPLAINT: Right flank pain 3 days HISTORY OF PRESENT ILLNESS: Patient is a 28-year-old female with past medical history significant for kidney stones presents the emergency department for evaluation of a sharp right flank pain with associated nausea and vomiting that started about 3 hours ago. Patient notes a 3 day history of an aching pain in her right mid back, she thought she was maybe developing a urinary tract infection. Today, about 3 hours ago the pain became very sharp and stabbing and began to radiate into the abdomen. She reports associated nausea and vomiting. She has not urinated in about 3 hours, but states that when she did void this morning urine was clear. She denies any dysuria, frequency, urgency or hematuria. She is status post gastric previously procedure, and reports that she "gets dehydrated easily." She has been feeling lightheaded since the increased pain. She rates her discomfort a 7/10. She has an IUD in place. She denies that she could be . REVIEW OF SYSTEMS: Review of systems as per HPI. All other systems reviewed were negative. 10 systems reviewed. PMH: Electronic medical records are reviewed and summarized as above/below. See Problem List. SOCIAL HISTORY: Patient lives at home with her spouse. Employed. Non-smoker. PHYSICAL EXAM: Vital Signs: Reviewed Nurse's notes. CONSTITUTIONAL: Patient is an obviously uncomfortable appearing 28-year-old female who is awake and alert and in moderate distress due to her right flank pain EYES: Pupils equal, round, reactive to light and accommodation. EOMs intact without nystagmus. Sclera are anicteric. ENT: Tympanic membranes intact, with normal landmarks. External canals are clear. Oral and nasopharynx are clear. Mucous membranes are moist, no lesions , tongue and gums appear normal. CARDIOVASCULAR: Regular rate and rhythm. Peripheral pulses easily palpable. RESPIRATORY: Breath sounds equal and clear to auscultation without wheezes, rales, or rhonchi heard. Full and equal chest expansion without accessory muscle use or retractions. ABDOMEN: Bowel sounds are present. Abdomen is soft, nondistended, nontender to palpation throughout. INTEGUMENTARY: No lesions or rash, normal skin turgor. LYMPH: No lymphadenopathy. EMERGENCY DEPARTMENT COURSE:. The patient was seen and evaluated as above. Her old records were reviewed. She had a CT scan of the abdomen and pelvis most recently in January of this year which noted punctate proximal right ureteral calculus. Patient was significantly uncomfortable upon initial presentation. IV lock was initiated. She was medicated with morphine 6 mg, Toradol 30 mg and Zofran 4 mg IV. Laboratory studies were collected including CBC with differential, CMP and lipase. Imaging was reviewed with her, and known history of nephrolithiasis, as well as having multiple CT scan to evaluate , KUB and retroperitoneal ultrasounds were ordered. Laboratory studies noted normal white count 9700, no left shift. H&H is normal. Electrolytes and renal functions are within normal limits. LFTs and lipase are not elevated. Renal ultrasound was essentially normal, there is no evidence for hydronephrosis or shadowing stones. Bilateral ureteral jets were identified. KUB noted a mild, nonobstructive small bowel ileus, no significant nephrocalcinosis allowing for overlying bowel. The patient was reassessed when she returned from her imaging studies. She reported that her pain was returning was given an additional morphine 6 IV. She was given oral fluids to help facilitate collection of the urine sample. When oral hydration was ineffective, nursing staff attempted to straight cath and could not obtain a urine. They did a bedside bladder scan which did not show any urine in the bladder. Patient was given more oral fluids and additional 1 L of normal saline solution. She was complaining of nausea and was given additional Zofran 4 mg IV. She was reassessed after her third liter of normal saline solution. She still has been unable to void. She was tolerating oral fluids. She reported that her pain was worsening. She was given an additional 30 mg of Toradol IV and morphine 6 mg IV, then ordered morphine 4 mg IV every hour as needed for pain. Discussed with the patient again further imaging with a CT scan, but given her benign abdomen, and unremarkable laboratory studies and using shared decision making, we have elected to defer at this time. The patient strongly feels that she is passing a kidney stone. She feels that she will be able to provide a urine sample. Care was signed out to Radha Mock PA-C at change of shift, pending urinalysis. Please refer to her dictation for remainder of the ED course and disposition. Differential diagnoses entertained included UTI, pyelonephritis, renal colic, bowel obstruction, perforation, shingles, hernia, scarring or adhesions, ovarian cyst, ovarian torsion, PID, tubo-ovarian abscess, among others. Medication reconciliation: I attest that I have personally reviewed the patient' s current medication list. Blood pressure screening: Patient was found to have a slightly elevated blood pressure due to circumstances. I do not believe that the patient requires hypertension monitoring. Patient was reviewed in the [facility] Prescription Drug Monitoring Program, and there were no red flags noted. RENAL ULTRASOUND HISTORY: RIGHT FLANK PAIN, HX OF STONES COMPARISON: KUB 06/24/2018. Renal ultrasound 07/13/2016. FINDINGS: Right kidney: 10.6 cm. No hydronephrosis. Normal corticomedullary differentiation and cortical thickness. Left kidney: 11.7 cm. No hydronephrosis. Normal corticomedullary differentiation and cortical thickness. Bladder: No bladder wall thickening. The bilateral ureteral jets were identified. IMPRESSION: Normal renal ultrasound. KUB CLINICAL HISTORY: RIGHT FLANK PAIN, HX OF STONE pain COMPARISON STUDY: 07/13/2016 FINDINGS: Nonobstructive bowel pattern. Mild nonobstructive small bowel ileus primarily in the left abdominal region. No significant nephrocalcinosis within limitations of overlying bowel content. There is an intrauterine device in position. IMPRESSION: Mild nonobstructive ileus. No acute process. Problem List Medical Problems: (1) Abdominal pain Status: Resolved (2) Abnormal vaginal bleeding Status: Resolved (3) Asthma, Unspecified Status: Chronic (4) Asthmatic bronchitis Status: Resolved (5) Cyst of ovary Status: Resolved (6) Diarrhea Status: Resolved (7) Dysfunctional uterine bleeding Status: Resolved (8) Dysfunctional uterine bleeding Status: Resolved (9) Flank pain Status: Resolved (10) History of lithotripsy Status: Resolved (11) IBS (irritable bowel syndrome) Status: Chronic (12) Intractable nausea and vomiting Status: Resolved (13) Kidney stone on left side Status: Resolved (14) Kidney stones Status: Chronic (15) Nausea Status: Resolved (16) Nausea and vomiting Status: Resolved (17) Pneumonia Status: Resolved (18) Renal colic Status: Resolved (19) Right flank pain Status: Resolved (20) Status post gastric banding surgery Status: Resolved (21) URIC ACID NEPHROLITHIAS Status: Chronic (22) Urinary tract infection Status: Resolved (23) Vomiting Status: Resolved Surgical Problems: (1) History of cholecystectomy Status: Resolved (2) [place] Teeth Removal Status: Resolved Current/Historical Medications Scheduled Adalimumab (Humira Pen), 40 MG SC WK Calcium Carbonate-Vitamin D (Calcium + D), 1 TAB PO DAILY Cholecalciferol (Vitamin D), 5,000 INTER.UNIT PO DAILY Escitalopram Oxalate (Escitalopram Oxalate), 10 MG PO DAILY Levonorgestrel (Iud) (Mirena), 20 MCG IU UD Multivitamin (Multivitamin), 1 TAB PO DAILY Pediatric Multiple Vitamins W/ (Flintstones Plus Iron), 1 TAB PO DAILY Scheduled PRN Albuterol Hfa (Ventolin Hfa), 2 PUFFS INH Q6H PRN for SOB/Wheezing Buspirone HCl (Buspirone HCl), 5 MG PO TID PRN for Anxiety Ondasetron Odt (Zofran Odt), 4 MG SL Q6H PRN for Nausea or Vomiting Oxycodone Immediate Rel Tab (Roxicodone Ir), 1-2 TAB PO Q4H PRN for Severe Pain Allergies Coded Allergies: NO KNOWN DRUG ALLERGIES (Verified Allergy, Mild, ., 02/14/18) Banana (Unverified Allergy, Unknown, ., 02/14/18) Uncoded Allergies: SEAFOOD (Allergy, Severe, ANAPHYLAXIS, 08/18/13) Vital Signs Date Time Temp Pulse Resp B/P (MAP) Pulse Ox O2 Delivery O2 Flow Rate FiO2 06/24/18 18:57 50 15 132/81 96 Room Air 06/24/18 17:00 48 16 139/90 94 Room Air 06/24/18 15:00 62 16 133/95 96 Room Air 06/24/18 13:00 55 18 130/89 97 Room Air 06/24/18 11:09 36.7 140 16 126/87 98 Room Air Laboratory Results 06/24/18 11:25 Red Blood Count 4.86, Mean Corpuscular Volume 93.0, Mean Corpuscular Hemoglobin 30.7, Mean Corpuscular Hemoglobin Concent 33.0, Mean Platelet Volume 10.5, Neutrophils (%) (Auto) 57.4, Lymphocytes (%) (Auto) 30.0, Monocytes (%) (Auto) 8.3, Eosinophils (%) (Auto) 3.5, Basophils (%) (Auto) 0.5, Neutrophils # (Auto) 5.72, Lymphocytes # (Auto) 2.99, Monocytes # (Auto) 0.83, Eosinophils # (Auto) 0.35, Basophils # (Auto) 0.05 06/24/18 11:25 Test 06/24/18 11:25 06/24/18 17:35 White Blood Count 9.97 K/uL (4.8-10.8) Red Blood Count 4.86 M/uL (4.2-5.4) Hemoglobin 14.9 g/dL (12.0-16.0) Hematocrit 45.2 % (37-47) Mean Corpuscular Volume 93.0 fL (80-100) Mean Corpuscular Hemoglobin 30.7 pg (25-34) Mean Corpuscular Hemoglobin Concent 33.0 g/dl (32-36) Platelet Count 306 K/uL (130-400) Mean Platelet Volume 10.5 fL (7.4-10.4) Neutrophils (%) (Auto) 57.4 % Lymphocytes (%) (Auto) 30.0 % Monocytes (%) (Auto) 8.3 % Eosinophils (%) (Auto) 3.5 % Basophils (%) (Auto) 0.5 % Neutrophils # (Auto) 5.72 K/uL (1.4-6.5) Lymphocytes # (Auto) 2.99 K/uL (1.2-3.4) Monocytes # (Auto) 0.83 K/uL (0.11-0.59) Eosinophils # (Auto) 0.35 K/uL (0-0.5) Basophils # (Auto) 0.05 K/uL (0-0.2) RDW Standard Deviation 50.0 fL (36.4-46.3) RDW Coefficient of Variation 14.8 % (11.5-14.5) Immature Granulocyte % (Auto) 0.3 % Immature Granulocyte # (Auto) 0.03 K/uL (0.00-0.02) Anion Gap 6.0 mmol/L (3-11) Est Creatinine Clear Calc Drug Dose 144.0 ml/min Estimated GFR () 129.0 Estimated GFR (Non- 111.3 BUN/Creatinine Ratio 7.2 (10-20) Calcium Level 8.5 mg/dl (8.5-10.1) Total Bilirubin 0.6 mg/dl (0.2-1) Aspartate Amino Transf (AST/SGOT) 15 U/L (15-37) Alanine Aminotransferase (ALT/SGPT) 26 U/L (12-78) Alkaline Phosphatase 93 U/L (45-117) Total Protein 7.4 gm/dl (6.4-8.2) Albumin 3.5 gm/dl (3.4-5.0) Globulin 3.9 gm/dl (2.5-4.0) Albumin/Globulin Ratio 0.9 (0.9-2) Lipase 96 U/L (73-393) Urine Color DK YELLOW Urine Appearance TURBID (CLEAR) Urine pH 6.5 (4.5-7.5) Urine Specific Counce 1.023 (1.000-1.030) Urine Protein TRACE (NEG) Urine Glucose (UA) NEG (NEG) Urine Ketones NEG (NEG) Urine Occult Blood NEG (NEG) Urine Nitrite NEG (NEG) Urine Bilirubin NEG (NEG) Urine Urobilinogen NEG (NEG) Urine Leukocyte Esterase NEG (NEG) Urine WBC (Auto) 5-10 /hpf (0-5) Urine RBC (Auto) 0-4 /hpf (0-4) Urine Hyaline Casts (Auto) 1-5 /lpf (0-5) Urine Epithelial Cells (Auto) >30 /lpf (0-5) Urine Bacteria (Auto) 1+ (NEG) Urine Renal Epithelial Cells 0-5 /lpf (0-5) Urine Crystals CALCIUM OXALATE (NONE Urine Pathogenic Casts /lpf (0) Urine Mucus PRESENT (NONE PRSENT) Urine Test NEG (NEG) Medications Administered Medications (Trade) Dose Ordered Sig/Tracey Route Start Time Stop Time Status Last Admin Dose Admin Sodium Chloride 2,000 ml @ 999 mls/hr Q2H1M STAT IV 06/24/18 11:17 06/24/18 13:17 DC 06/24/18 11:17 999 MLS/HR Ketorolac Tromethamine (Toradol Inj) 30 mg NOW STAT IV 06/24/18 11:17 06/24/18 11:22 DC 06/24/18 11:42 30 MG Ondansetron HCl (Zofran Inj) 4 mg NOW STAT IV 06/24/18 11:17 06/24/18 11:23 DC 06/24/18 11:42 4 MG Morphine Sulfate (MoRPHine SULFATE INJ) 6 mg NOW STAT IV 06/24/18 11:17 06/24/18 11:23 DC 06/24/18 11:43 6 MG Morphine Sulfate (MoRPHine SULFATE INJ) 6 mg NOW STAT IV 06/24/18 13:56 06/24/18 13:57 DC 06/24/18 14:03 6 MG Ondansetron HCl (Zofran Inj) 4 mg NOW STAT IV 06/24/18 16:26 06/24/18 16:27 DC 06/24/18 16:31 4 MG Sodium Chloride 1,000 ml @ 999 mls/hr Q1H1M STAT IV 06/24/18 16:26 06/24/18 17:26 DC 06/24/18 16:26 999 MLS/HR Ketorolac Tromethamine (Toradol Inj) 30 mg NOW STAT IV 06/24/18 17:22 06/24/18 17:24 DC 06/24/18 17:53 30 MG Morphine Sulfate (MoRPHine SULFATE INJ) 6 mg NOW STAT IV 06/24/18 17:22 06/24/18 17:24 DC 06/24/18 17:54 6 MG Departure Information Impression Primary Impression: Right flank pain Prescriptions Ondasetron Odt (ZOFRAN ODT) 4 Mg Tab 4 MG SL Q6H Y for Nausea or Vomiting, #20 TAB Prov: Arminda Stanton PA 06/24/18 Oxycodone Immediate Rel Tab (ROXICODONE IR) 5 Mg Tab 1-2 TAB PO Q4H Y for Severe Pain, #20 TAB For Initial Treatment Prov: Arminda Stanton PA 06/24/18 Referrals Johana Jamison (PCP) Patient Instructions My [facility] Additional Instructions DO NOT drive, drink alcohol, operate machinery, or perform dangerous activities today. You were given medications in the ER that can affect your ability to safely function or operate a vehicle. Oxycodone Immediate Release (OxyIR) 5mg: Take 1-2 pills every four hours for pain. Avoid alcohol, operating machinery or dangerous equipment, working on ladders or roofs, DRIVING, or situations where being under the influence may be dangerous. It is recommended to use an [id number] stool softener such as Colace, 100mg twice daily while taking this medication to avoid constipation. Zofran(odansetron) tablets 4mg: Take one and allow it to dissolve in your mouth every four to six hours as needed for nausea or vomiting. Ibuprofen(Motrin, Advil) may be used for fever or pain. Use 600mg every six hours as needed. Take with food. Avoid using more than 2400mg in a 24 hour period. Do not use 2400mg per day for more than three consecutive days without physician direction. Prolonged inappropriate use can lead to stomach upset or ulcers. This medication can be taken if you need to drive, work, or perform activities which may be dangerous when taking narcotic pain medication. (AND/OR) Acetaminophen(Tylenol) may be used for fever or pain. Use 1000mg every six hours as needed. Avoid using more than 4000mg in a 24 hour period. This medication can be taken if you need to drive, work, or perform activities which may be dangerous when taking narcotic pain medication. Rest and avoid strenuous activity until your stone passes and symptoms resolve. Drink plenty of fluids. Continue current medications. Return to the ER for worsening abdominal or back pain, vomiting, fevers, passing out, or as needed. Follow up with your urologist for further care and evaluation if your symptoms are not improving.
[2018-06-24] MEDS ORDERED: MoRPHine SULFATE 4 MG/ML 1 ML CARP\\VIAL IV PRN (17:30)
[2018-06-24 18:57] VITALS: BP 132/81; PULSE 50; O2SAT 96
--- NOTE | 2018-06-26 00:50 | EMERGENCY ROOM VISIT NOTE ---
ED Visit Note Care of this patient was signed out to me at change of shift by Page Stanton PA-C. At that time, the patient had not yet provided a urine sample. Urinalysis was reviewed by myself and shows no evidence of infection. There are calcium oxalate stones which are consistent with the patient's likely stone. Patient was informed of these findings. She is ready for discharge. Please see Page's dictation for the full HPI and ED course.
== END 2018-06-24 19:00 | disposition home or self-care (01) ==
LOC: C.EDB 11:04 → C.EDC 19:00
DX: R10.9 Unspecified abdominal pain (principal); R11.2 Nausea with vomiting, unspecified; K58.9 Irritable bowel syndrome, unspecified; J45.909 Unspecified asthma, uncomplicated; Z79.899 Other long term (current) drug therapy; Z97.5 Presence of (intrauterine) contraceptive device; Z87.442 Personal history of urinary calculi; Z91.013 Allergy to seafood; Z91.018 Allergy to other foods

== ENCOUNTER 2024-01-05 08:32 | Observation (INO) ==
--- NOTE | 2024-01-05 08:56 | Emergency Department Note ---
Impression & Plan Syncope, Headache, migraine, intractable ED Provider Note NAME: ALEXIS Barnett YOUNG AGE: 33 SEX: F : 1990 ARRIVES VIA: Walk-In INFORMANT: Patient, ED PROVIDER(S): Howard Hunter DO CHIEF COMPLAINT: Syncope HPI: The patient is a 33-year-old female who presented to the emergency department with multiple complaints. The patient was sent by the oncology center for further workup. They were trying to do an outpatient workup on the patient for syncope and headaches but the patient had another episode this morning and they were very concerned. Patient states that she has numbness and tingling around her lips as well as her upper extremities. She denies having any neck pain. She denies having any abdominal pain or chest pain. She denies having any trouble breathing. The patient states that she had 1 episode where she fell striking the right side of her forehead. She did not hurt herself anywhere else. She denies having any lower extremity weakness or numbness. The patient has a history of migraine headache but this appears different. She states that over the last week especially she has had constant headaches. ROS: See above HPI for pertinent positives & negatives. A total of 10 systems reviewed and were otherwise negative. PAST MEDICAL HISTORY: See Below PAST SURGICAL HISTORY: See Below FAMILY HISTORY: See Below SOCIAL HISTORY: See Below HOME MEDICATIONS: See Below ALLERGIES: See Below VITALS: See Below PHYSICAL EXAMINATION: GENERAL: The patient is awake and alert. The patient is anxious and uncomfortable appearing. EYES: The conjunctivae are clear. The pupils are round and reactive. EARS, NOSE, MOUTH AND THROAT: The nose is without any evidence of any deformity. Mucous membranes are moist. Tongue is midline. NECK: The neck is nontender and supple. RESPIRATORY: Normal respiratory effort is noted there is no evidence of wheezing rhonchi or rales CARDIOVASCULAR: Regular rate and rhythm noted there no murmurs rubs or gallops normal S1 normal S2. GASTROINTESTINAL: The abdomen is soft. Abdomen is nontender. BACK: No midline tenderness or or step-off noted range of motion in flexion extension as well as rotation no signs of muscle spasm noted MUSCULOSKELETAL/EXTREMITIES: There is no evidence of gross deformity full range of motion is noted in the hips and shoulders. SKIN: There is no obvious evidence of any rash. There are no petechiae, pallor or cyanosis noted. NEUROLOGIC: Patient is awake alert and oriented x3 strength is symmetric patellar reflexes are 1+ bilaterally MEDICAL DECISION MAKING: The patient is a 33-year-old female who presented to the emergency department for an evaluation of syncope. The patient's been having problems with multiple syncopal episodes as well as intractable migraine headache over the course the last few weeks. She was seen at the cancer center. She works there but was evaluated by the providers there. She had outpatient MRI ordered. She presents emerged from today because of ongoing and worsening symptoms. The patient has no focal neurologic deficits but does complain of severe headache. I discussed the patient's laboratory and radiographic studies with her. Given her ongoing symptoms as well as her worsening syncope I do feel the patient may be a better candidate for inpatient management. For this reason I discussed her condition with the on-call [facility] hospitalist. They have agreed to evaluate the patient in the emergency department for further management and disposition. Triage Nursing notes reviewed. Prior medical records reviewed Vital Signs: reviewed and remarkable for no significant abnormalities Differential diagnosis: Vasovagal event, dehydration, infection, hypoglycemia, electrolyte abnormalities, cardiac sources, intracerebral event, pulmonary embolism, seizure, toxicologic, neurologic, as well as other pathologies. ER treatment provided: See below Diagnostics interpreted by me: ECG: EKG was obtained in the emergency department. My interpretation is normal sinus rhythm at 66 bpm. There is no ectopy. There is no acute ST segment abnormalities noted. This was compared to a tracing from January 03, 2024. No changes were noted. Cardiac Monitoring: An order was placed for continuous cardiac monitoring. The monitor shows a rate of 61 bpm with sinus rhythm. Laboratory studies: As stated above and show below. Imaging studies: See below. Radiographic imaging was reviewed by myself Consultation(s): I discussed this case with Dr. Vallecillo who [facility]. Past Med/Surg History Medical History IBS (irritable bowel syndrome) HX Rheumatoid arthritis Depression Morbid obesity Ovarian cyst RESOLVED Kidney stones Hidradenitis suppurativa Anxiety Migraine Asthma STABLE > HASNT USED INH IN OVER A YEAR Surgical History History of cystoscopy WITH STONE REMOVAL History of lithotripsy History of esophagogastroduodenoscopy (EGD) EUS/EGD= 01/17/16= GRADE 1 VIEW, MAC 3, ETT 7.0 AT [facility] (ATRAUMATIC DVL X 1) History of colonoscopy History of cholecystectomy History of surgery GASTRIC SLEEVE 11/14/17 History of tooth extraction WISDOM TEETH Family History Grandmother Cancer Grandfather Cancer Father Family history of esophageal cancer Mother Family hx colonic polyps Family/Other Family hx colonic polyps Other Family hx of colon cancer Social History Smoking Status: Former smoker Second Hand Exposure: No; Do You Dip or Chew Tobacco: No; Hx Alcohol Use: Yes Alcohol type: beer Hx Substance Use: No Preferred Language: Setswana Communication Ability: Effective Cut Tobacco Bulker Required: No Beliefs That Will Affect Care: None Current Living Situation: Spouse current occupational status: employed Feels Safe at Home: Yes Assistive Devices: Contacts and Glasses Allergies Allergies Allergy/AdvReac Type Severity Reaction Status Date / Time shellfish derived Allergy Severe Anaphylaxis Unverified 01/05/24 10:18 SEAFOOD Allergy Severe ANAPHYLAXIS Uncoded 01/05/24 10:18 Home Meds Home Medications Medication Instructions Recorded Confirmed multivitamin 1 tab PO QAM 09/06/18 01/05/24 levonorgestrel 21 mcg/24 hours (8 20 mcg intrauterine CONT 01/25/20 01/05/24 yrs) 52 mg intrauterine device (Mirena) albuterol sulfate 90 mcg/actuation 1 inh inhalation QID PRN Asthma 09/26/20 01/05/24 aerosol inhaler adalimumab 40 mg/0.4 mL 40 mg subcut WK 02/25/21 01/05/24 subcutaneous pen kit (Humira(CF) Pen) folic acid 1 mg tablet 1 mg PO QAM 04/21/22 01/05/24 ergocalciferol (vitamin D2) 1,250 1,250 mcg PO WK 01/05/24 01/05/24 mcg (50,000 unit) capsule (Vitamin D2) Results & Data (ED) Vital Signs Vital Signs - 24 hr 01/05/24 08:39 01/05/24 08:48 01/05/24 09:04 Temperature 36.8 C Temperature Source Temporal Artery Scan Pulse Rate 65 60 Pulse Rate [Apical] Respiratory Rate 20 Respiratory Effort / Characteristics Respiratory Depth Respiratory Pattern Blood Pressure 156/82 H Blood Pressure [Right Arm] Blood Pressure Mean 106 Blood Pressure Mean [Right Arm] Pulse Oximetry 97 97 Oxygen Delivery Method Room Air Room Air Sepsis Recent Fever Within 48 Hours No Sepsis New/Unexplained Change in Mental Status N/A Sepsis Action Taken by Nursing No Action Required 01/05/24 09:42 01/05/24 09:42 01/05/24 11:00 Temperature Temperature Source Pulse Rate 63 Pulse Rate [Apical] 57 L 56 L Respiratory Rate 20 20 18 Respiratory Effort / Characteristics Non-Labored Spontaneous Non-Labored Respiratory Depth Normal Normal Respiratory Pattern Regular Blood Pressure Blood Pressure [Right Arm] 131/96 119/82 Blood Pressure Mean Blood Pressure Mean [Right Arm] 107 94 Pulse Oximetry 98 98 98 Oxygen Delivery Method Room Air Room Air Room Air Sepsis Recent Fever Within 48 Hours Sepsis New/Unexplained Change in Mental Status Sepsis Action Taken by Nursing 01/05/24 13:00 Temperature Temperature Source Pulse Rate Pulse Rate [Apical] 61 Respiratory Rate 18 Respiratory Effort / Characteristics Non-Labored Respiratory Depth Normal Respiratory Pattern Blood Pressure Blood Pressure [Right Arm] 108/65 Blood Pressure Mean Blood Pressure Mean [Right Arm] 79 Pulse Oximetry 99 Oxygen Delivery Method Room Air Sepsis Recent Fever Within 48 Hours Sepsis New/Unexplained Change in Mental Status Sepsis Action Taken by [facility] Medications Current Medication List: was personally reviewed by me Laboratory Data Attestation: I reviewed the patient's lab results. 01/05/24 09:09 01/05/24 09:09 Lab Results 01/05/24 01/05/24 Range/Units 09:09 Unknown WBC 7.61 (4.8-10.8) K/ul RBC 4.33 (4.20-5.40) M/uL Hgb 13.9 (12.0-16.0) g/dl POC Hgb 14.6 (12.0-16.0) g/dl Hct 42.4 (37.0-47.0) % POC Hct 43 (37-47) % MCV 97.9 (80.0-100.0) fL MCH 32.1 (25.0-34.0) pg MCHC 32.8 (32.0-36.0) g/dL RDW Std Deviation 49.3 H (36.4-46.3) fL RDW Coeff of Christine 13.5 (11.5-14.5) % Plt Count 297 (130-400) K/uL MPV 10.1 (9.4-12.4) fL Immature Gran % (Auto) 0.4 % Neut % (Auto) 64.4 % Lymph % (Auto) 23.3 % [place] % (Auto) 6.4 % Eos % (Auto) 4.1 % Baso % (Auto) 1.4 % Neut # (Auto) 4.90 (1.40-6.50) K/uL Lymph # (Auto) 1.77 (1.20-3.40) K/uL [place] # (Auto) 0.49 (0.11-0.59) K/uL Eos # (Auto) 0.31 (0.00-0.50) K/uL Baso # (Auto) 0.11 (0.00-0.20) K/uL Immature Gran # (Auto) 0.03 (0.01-0.20) K/uL PT 10.8 (9.0-12.0) Seconds INR 1.0 (0.9-1.1) APTT 30 (21-31) Seconds PTT Ratio 1.1 POC Sodium 139 (135-144) mmol/L Sodium 137 (136-145) mmol/L POC Potassium 4.1 (3.3-5.0) mmol/L Potassium 4.1 (3.5-5.1) mmol/L POC Chloride 101 (101-112) mmol/L Chloride 104 (98-107) mmol/L Carbon Dioxide 26 (21-32) mmol/L POC Total CO2 26 (24-31) mmol/L Anion Gap 7 (3-11) POC Anion Gap 17.0 (16-25) mmol/L POC BUN 9 (7-18) mg/dl BUN 10 (6-23) mg/dl Creatinine 0.84 (0.6-1.2) mg/dl POC Creatinine 0.8 (0.6-1.3) mg/dl Est Cr Clr Drug Dosing 123.1 ml/min Est GFR ( Amer) 105.1 ml/min Est GFR (Non-Af Amer) 90.7 ml/min BUN/Creatinine Ratio 11.9 (10-20) Glucose 93 (70-99(Fasting)) mg/dl POC Glucose (other) 93 (70-99) mg/dl Calcium 9.3 (8.6-10.3) mg/dl POC Ioniz Calcium Shelbie 1.19 (1.12-1.32) mmol/l Magnesium 2.2 (1.7-2.4) mg/dl Total Bilirubin 0.6 (0.2-1.0) mg/dl AST 16 (13-39) U/L ALT 12 (7-52) U/L Alkaline Phosphatase 68 (34-104) U/L Total Creatine Kinase 46 (26-192) U/L Troponin I High Sens < 2.3 (0-14) pg/ml Total Protein 7.3 (6.0-8.3) gm/dl Albumin 4.1 (3.4-5.0) gm/dl Globulin 3.2 (2.5-4.0) gm/dl Albumin/Globulin Ratio 1.3 (0.9-2) Lipase 14 (11-82) U/L TSH 1.936 (0.300-4.500) uIu/ml HCG, Qual Negative (Negative) Urine Color Yellow Urine Appearance Clear (Clear) Urine pH 8.0 H (4.5-7.5) Ur Specific [place] 1.042 H (1.000-1.030) Urine Protein Negative (Negative) Urine Glucose (UA) Negative (Negative) Urine Ketones Negative (Negative) Urine Blood Negative (Negative) Urine Nitrite Negative (Negative) Urine Bilirubin Negative (Negative) Urine Urobilinogen Negative (Negative) Ur Leukocyte Esterase Negative (Negative) Administered Medications Discontinued Medications Sodium Chloride (Nss) 1,000 mls @ 999 mls/hr IV .Q1H1M DAINA Stop: 01/05/24 10:00 Last Infusion: 01/05/24 11:08 Dose: Infused Documented By: Admin: 01/05/24 09:38 Dose: 999 mls/hr Documented By: URBAN Promethazine HCl (Phenergan) 12.5 mg in 50.5 mls @ 202 mls/hr IV NOW STA Stop: 01/05/24 09:03 Last Infusion: 01/05/24 11:08 Dose: Infused Documented By: Admin: 01/05/24 09:55 Dose: 202 mls/hr Documented By: URBAN Acetaminophen (Ofirmev) 1,000 mg in 100 mls @ 400 mls/hr IV NOW STA Stop: 01/05/24 09:03 Last Infusion: 01/05/24 09:56 Dose: Infused Documented By: Admin: 01/05/24 09:38 Dose: 400 mls/hr Documented By: URBAN Ioversol (Optiray 320 125ml) 112 ml IV ONCE ONE Stop: 01/05/24 09:15 Last Admin: 01/05/24 09:15 Dose: 112 ml Documented By: LEXIS Imaging Data Attestation: I personally reviewed and interpreted this imaging study as follows: My Impression: CT the brain was obtained in the emergency department. My interpretation is no intracranial hemorrhage or mass effect, final report below. 1 view chest x-ray was obtained in the emergency department. My interpretation is no free air or definite infiltrate, final report below. Radiologist's Impression: Head CTA 01/05/24 08:49 HEAD CTA HISTORY: Headache and syncope TECHNIQUE: Multiaxial CT images of the head were performed following the intravenous administration of contrast to evaluate the major cerebral vessels. 3D/MIP images were also obtained. Sagittal and coronal reformats were reviewed. A dose lowering technique was utilized adhering to the principles of ALARA. COMPARISON: None. FINDINGS: There is no mass, hematoma, midline shift, or acute infarct. Visualized intracranial internal carotid arteries, distal vertebral arteries, and basilar artery are widely patent. There is no significant stenosis, occlusion, or aneurysm seen within the bilateral ACAs, MCAs, or process automation engineer. The major dural venous sinuses are patent. IMPRESSION: No significant stenosis, occlusion, or aneurysm within the [place] of [place]. ACT 112: Negative or not required by law. Electronically signed by: Varun Soliman M.D. 01/05/2024 10:03 AM Neck CTA 01/05/24 08:49 CT ANGIOGRAPHY OF THE NECK WITH CONTRAST CLINICAL HISTORY: Headache and syncope. COMPARISON STUDY: No previous studies for comparison. Technique: CT angiography of the carotid and vertebral arteries was obtained using Optiray and 3D reconstruction on an independent workstation. NASCET criteria was utilized. Automated exposure control was utilized for the study. A dose lowering technique was utilized adhering to the principles of ALARA. Findings: Visualized portions of the lung apices are unremarkable. There is no cervical lymphadenopathy. There is no acute cervical spine fracture. Lucency within the anterior arch of C1 is chronic. The bilateral common carotid, cervical internal carotid and vertebral arteries are patent. No stenosis, dissection or aneurysm within these vessels is present. There is no atherosclerotic plaque. IMPRESSION: Unremarkable CTA of the neck. . ACT 112: Negative or not required by law. Electronically signed by: Marvin Young M.D. 01/05/2024 9:41 AM Chest X-Ray 01/05/24 08:50 XR chest 1V portable HISTORY: syncope COMPARISON: Chest 06/28/2023. FINDINGS: The lungs are clear. Cardiac silhouette is normal in size. No pleural effusions. No pneumothorax. IMPRESSION: No acute process. ACT 112: Negative or not required by law. Electronically signed by: Varun Soliman M.D. 01/05/2024 9:[address] 01/05/24 08:50 CT OF THE HEAD WITHOUT CONTRAST CLINICAL HISTORY: Syncope. COMPARISON STUDY: Head CT September 06, 2018. TECHNIQUE: Helical axial images of the head were obtained without IV contrast. Automated exposure control was utilized for the study. A dose lowering technique was utilized adhering to the principles of ALARA. FINDINGS: No acute intracranial hemorrhage, midline shift or mass effect is present. The ventricular system is unremarkable. The basal cisterns are patent. No extra-axial collections are present. There are no findings to suggest acute dural sinus thrombosis or acute territorial infarct. No significant calvarial abnormalities are present. Visualized portions of the sinuses and mastoid air cells are clear. IMPRESSION: No acute intracranial findings. ACT 112: Negative or not required by law. Electronically signed by: Marvin Young M.D. 01/05/2024 9:34 AM Discharge Plan Visit Data Chief Complaint: Syncope Stated Complaint: CHRONIC HEADACHES W/SYNCOPE ED Provider: Howard Hunter Discharge Problem: Syncope, Headache, migraine, intractable Patient Disposition: Being Evaluated by Hospitalist Forms Stand Alone Forms: [employer] Medical Prescriptions Prescriptions: No Action Mirena 20 mcg/24 hours (5 yrs) 52 mg Intrauterine Device 20 mcg INTRAUTERINE CONT albuterol sulfate 90 mcg/actuation Hfa Aerosol Inhaler 1 inh INHALATION QID PRN (Reason: Asthma) multivitamin Tablet 1 tab PO QAM Humira(CF) Pen 40 mg/0.4 mL pen injector kit 40 mg SUBCUT WK Rx Instructions: Wednesday folic acid 1 mg tablet 1 mg PO QAM ergocalciferol (vitamin D2) [Vitamin D2] 1,250 mcg (50,000 unit) Capsule 1,250 mcg PO WK Rx Instructions: Wednesday Referrals Referrals: Levon Villafana MD [Primary Care Provider] - Discharge Problem: Syncope Qualifiers: Syncope type: unspecified Qualified Code(s): R55 - Syncope and collapse Headache, migraine, intractable Qualifiers: Migraine type: unspecified Status migrainosus presence: without status migrainosus Qualified Code(s): G43.919 - Migraine, unspecified, intractable, without status migrainosus
[2024-01-05] MEDS: OPTIRAY 320 125ml IV ONE (09:15)
[2024-01-05 09:21] LABS: iSTAT Creatinine 0.8 mg/dl (0.6-1.3); iSTAT Hemoglobin 14.6 g/dl (12.0-16.0); iSTAT Ionized Calcium 1.19 mmol/l (1.12-1.32); iSTAT Potassium 4.1 mmol/L (3.3-5.0)
[2024-01-05 09:26] LABS: Basophils # (auto) 0.11 K/uL (0.00-0.20); Basophils % (auto) 1.4 %; Eosinophils # (auto) 0.31 K/uL (0.00-0.50); Eosinophils % (auto) 4.1 %; Hematocrit (blood only) 42.4 % (37.0-47.0); Hemoglobin 13.9 g/dl (12.0-16.0); Immature Granulocytes # (auto) 0.03 K/uL (0.01-0.20); Immature Granulocytes % (auto) 0.4 %; Lymphocytes # (auto) 1.77 K/uL (1.20-3.40); Lymphocytes % (auto) 23.3 %; Mean Corpuscular Hemoglobin 32.1 pg (25.0-34.0); Mean Corpuscular Hgb Conc 32.8 g/dL (32.0-36.0); Mean Corpuscular Volume 97.9 fL (80.0-100.0); Mean Platelet Volume 10.1 fL (9.4-12.4); Monocytes # (auto) 0.49 K/uL (0.11-0.59); Monocytes % (auto) 6.4 %; Neutrophils % (auto) 64.4 %; Platelet Count 297 K/uL (130-400); RDW Coefficient of Variation 13.5 % (11.5-14.5); RDW Standard Deviation 49.3 fL (36.4-46.3); Red Blood Count 4.33 M/uL (4.20-5.40); White Blood Count 7.61 K/ul (4.8-10.8)
--- NOTE | 2024-01-05 09:35 | CT Scan Report ---
CT OF THE HEAD WITHOUT CONTRAST CLINICAL HISTORY: Syncope. COMPARISON STUDY: Head CT September 06, 2018. TECHNIQUE: Helical axial images of the head were obtained without IV contrast. Automated exposure con trol was utilized for the study. A dose lowering technique was utilized adhering to the principles o f ALARA. FINDINGS: No acute intracranial hemorrhage, midline shift or mass effect is present. The ventricular system is unremarkable. The basal cisterns are patent. No extra-axial collections are present. There are no findings to suggest acute dural sinus thrombosis or acute territorial infarct. No significant calvarial abnormalities are present. Visualized portions of the sinuses and mastoid air cells are rodríguez ar. IMPRESSION: No acute intracranial findings. ACT 112: Negative or not required by law. Electronically signed by: Marvin Young M.D. 01/05/2024 9:34 AM
[2024-01-05] MEDS: SODIUM CHLORIDE 0.9% 1,000 ML IV SCH (09:38)
[2024-01-05] MEDS: ACETAMINOPHEN 1,000 MG/100 ML VIAL IV STA (09:38)
[2024-01-05 09:40] LABS: Pregnancy Test, Serum Negative (Negative)
--- NOTE | 2024-01-05 09:42 | CT Scan Report ---
CT ANGIOGRAPHY OF THE NECK WITH CONTRAST CLINICAL HISTORY: Headache and syncope. COMPARISON STUDY: No previous studies for comparison. Technique: CT angiography of the carotid and vertebral arteries was obtained using Optiray and 3D rec onstruction on an independent workstation. NASCET criteria was utilized. Automated exposure control was utilized for the study. A dose lowering technique was utilized adhering to the principles of ALA RA. Findings: Visualized portions of the lung apices are unremarkable. There is no cervical lymphadenopat hy. There is no acute cervical spine fracture. Lucency within the anterior arch of C1 is chronic. The bilateral common carotid, cervical internal carotid and vertebral arteries are patent. No stenosis, dissection or aneurysm within these vessels is present. There is no atherosclerotic plaque. IMPRESSION: Unremarkable CTA of the neck. . ACT 112: Negative or not required by law. Electronically signed by: Marvin Yuong M.D. 01/05/2024 9:41 AM
--- NOTE | 2024-01-05 09:45 | XRay Report ---
XR chest 1V portable HISTORY: syncope COMPARISON: Chest 06/28/2023. FINDINGS: The lungs are clear. Cardiac silhouette is normal in size. No pleural effusions. No pneumot horax. IMPRESSION: No acute process. ACT 112: Negative or not required by law. Electronically signed by: Varun Soliman M.D. 01/05/2024 9:44 AM
[2024-01-05 09:51] LABS: Partial Thromboplastin Ratio 1.1; Partial Thromboplastin Time 30 Seconds (21-31); Prothrombin Time 10.8 Seconds (9.0-12.0)
[2024-01-05] MEDS: PROMETHAZINE 12.5 MG/50.5 ML BAG IV STA (09:55)
--- NOTE | 2024-01-05 10:06 | CT Scan Report ---
HEAD CTA HISTORY: Headache and syncope TECHNIQUE: Multiaxial CT images of the head were performed following the intravenous administration o f contrast to evaluate the major cerebral vessels. 3D/MIP images were also obtained. Sagittal and co ronit reformats were reviewed. A dose lowering technique was utilized adhering to the principles of A NISREEN. COMPARISON: None. FINDINGS: There is no mass, hematoma, midline shift, or acute infarct. Visualized intracranial analysis intern al carotid arteries, distal vertebral arteries, and basilar artery are widely patent. There is no sig nificant stenosis, occlusion, or aneurysm seen within the bilateral ACAs, MCAs, or optomechanical engineer. The major du ral venous sinuses are patent. IMPRESSION: No significant stenosis, occlusion, or aneurysm within the [place] of [place]. ACT 112: Negative or not required by law. Electronically signed by: Varun Soliman M.D. 01/05/2024 10:03 AM
[2024-01-05 10:34] LABS: Alanine Aminotransferase 12 U/L (7-52); Albumin Globulin Ratio 1.3 (0.9-2); Albumin Level 4.1 gm/dl (3.4-5.0); Alkaline Phosphatase 68 U/L (34-104); Anion Gap 7 (3-11); Aspartate Aminotransferase 16 U/L (13-39); BUN Creatinine Ratio 11.9 (10-20); Bilirubin,Total 0.6 mg/dl (0.2-1.0); Blood Urea Nitrogen 10 mg/dl (6-23); Calcium 9.3 mg/dl (8.6-10.3); Carbon Dioxide 26 mmol/L (21-32); Chloride 104 mmol/L (98-107); Creatine Kinase 46 U/L (26-192); Creatinine Clr Calc Pharmacy 123.1 ml/min; Est GFR (African American) 105.1 ml/min; Est GFR (Non-African American) 90.7 ml/min; Globulin 3.2 gm/dl (2.5-4.0); Glucose 93 mg/dl (70-99(Fasting)); Lipase 14 U/L (11-82); Magnesium 2.2 mg/dl (1.7-2.4); Potassium 4.1 mmol/L (3.5-5.1); Sodium 137 mmol/L (136-145); Total Protein 7.3 gm/dl (6.0-8.3)
[2024-01-05 10:40] LABS: Troponin I High Sensitivity < 2.3 pg/ml (0-14)
[2024-01-05 10:50] LABS: Thyroid Stimulating Hormone 1.936 uIu/ml (0.300-4.500)
--- NOTE | 2024-01-05 11:06 | Electrocardiogram Report ---
Test Reason : Blood Pressure : / mmHG Vent. Rate : 066 BPM Atrial Rate : 066 BPM P-R Int : 128 ms QRS Dur : 076 ms QT Int : 416 ms P-R-T Axes : 024 005 009 degrees QTc Int : 436 ms Normal sinus rhythm with sinus arrhythmia Normal ECG When compared with ECG of 03-JAN-2024 13:00, No significant change was found Confirmed by Jason Ivan ([id number]) on 01/05/2024 11:06:06 AM Referred By: Confirmed By:Jason Ivan
[2024-01-05 11:34] LABS: Appearance Urine Clear (Clear); Bilirubin Urine Negative (Negative); Blood Urine Negative (Negative); Color Urine Yellow; Glucose Urine UA Negative (Negative); Ketones Urine Negative (Negative); Leukocyte Esterase Urine Negative (Negative); Nitrite Urine Negative (Negative); Protein Urine Negative (Negative); Specific Gravity Urine 1.042 (1.000-1.030); Urobilinogen Urine Negative (Negative)
--- NOTE | 2024-01-05 12:29 | History & Physical Report ---
Date of Service January 05, 2024 Assessment & Plan (1) Syncope: Plan: Main reason she was sent to the ER today Suspect most likely due to dehydration from decreased oral intake with concurrent symptoms of decreased appetite, headache, fatigue, insomnia potentially causing this Low suspicion of arrhythmia but given full syncopal event will monitor on telemetry overnight - consider residential monitor on discharge if no recurrent event captured Orthostatics tomorrow after rehydration with IV fluids overnight DMV paperwork should be considered prior to discharge if no adequate explanation or no reversible cause of syncope found (2) Headache: Plan: Reports similar to migraines in high school although history fits better with tension headache. ?from B12/folate deficiency Brain MRI to rule out alternative etiology given concurrent right hand tremor and perioral paresthesia (3) Tremor of right hand: Plan: If no significant explanation on MRI brain will place neurology consult ?folate/B12 deficiency (4) Perioral numbness: Plan: As above for tremor (5) Insomnia: Plan: Agree with sleep study to be arranged as outpatient - ?GERALDINE (6) Asthmatic bronchitis: Plan: Albuterol PRN (7) Lupus (systemic lupus erythematosus): Plan: Methotrexate 22.5mg PO once weekly Notably patient was not on folic acid supplementation until recently for this (8) Rheumatoid arthritis: (9) Hidradenitis suppurativa: Plan: Reason for Humira weekly (10) Morbid obesity: Plan: Hx gastric sleeve 2016 (11) PCOS (polycystic ovarian syndrome): Plan VTE Prophylaxis - low risk Diet - heart healthy Disposition - observation to med/tele Admission and Anticipated Discharge Date Admission Date: Jan 05, 2024 History of Present Illness Chief Complaint: Syncope, headache, right hand tremor, perioral paresthesia Primary Care Provider: Levon Villafana MD Allegra Muñoz is a 33 year old female who presents to the ER today on advice of the heme/onc clinic where she is seen for B12 deficiency but also works due to a syncopal event while driving. She has had multiple presyncopal/syncopal events in the last 2 weeks which is unusual for her but she also had similar events as a child associated with migraine headaches. Over the last 2 weeks she has had three episodes of complete syncope where she has not had prodromal symptoms and ended up waking up on the floor. She has had other occasions of feeling lightheaded and dizzy but also reports a room spinning sensation. She notes lightheadedness on standing in addition. No prior cardiac arrhythmias. Today she reports while driving everything went black and she almost re-ended the car in front of her. The presyncope/syncope has come on at the same time as a frontal headache, non pulsatile, severity 4-6/10 severity which has been constant over the last 2 weeks, worse around 2-3pm every day. She notes light sensitivity and feels these are similar to migraines she had as a child and gets once every 6 months as an adult. Associated generalized fatigue and decreased appetite (eating and drinking much less), perioral parerethises and right hand tremor which is present at resting and not worse on posturing or actions. No family history of tremors. No other numbness or focal weakness. 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 She has chronic insomnia and has plans for an outpatient sleep study that is being arranged. In general she feels the life has been sucked out of her the last few weeks and has had no appetite. She notable takes methotrexate for rheumatoid arthritis / lupus and was not on folic acid supplementation until recently (noted to be low on Jan 03). She is also now on B12 injections monthly and has a notably history of a gastric sleeve. She denies any dysphagia or odynophagia. She denies any current joint flares/swelling/pain. Notably history of PCOS. Currently has Mirena for the last 3 years and does not have periods - on and off for 8 years. She denies any current respiratory, urinary or gastrointestinal infective sym ptoms although notes having a cold in the middle of last month but feels she completely recovered from this. No fever or chills. Allergies Allergy/AdvReac Type Severity Reaction Status Date / Time shellfish derived Allergy Severe Anaphylaxis Unverified 01/05/24 10:18 SEAFOOD Allergy Severe ANAPHYLAXIS Uncoded 01/05/24 10:18 Home Medications Medication Instructions Recorded Confirmed Type multivitamin 1 tab PO QAM 09/06/18 01/05/24 History levonorgestrel 21 mcg/24 hours (8 20 mcg intrauterine CONT 01/25/20 01/05/24 History yrs) 52 mg intrauterine device (Mirena) albuterol sulfate 90 mcg/actuation 1 inh inhalation QID PRN Asthma 09/26/20 01/05/24 History aerosol inhaler adalimumab 40 mg/0.4 mL 40 mg subcut WK 02/25/21 01/05/24 History subcutaneous pen kit (Humira(CF) Pen) folic acid 1 mg tablet 1 mg PO QAM 04/21/22 01/05/24 History ergocalciferol (vitamin D2) 1,250 1,250 mcg PO WK 01/05/24 01/05/24 History mcg (50,000 unit) capsule (Vitamin D2) methotrexate sodium 25 mg/mL 22.5 mg subcut WK 01/05/24 01/05/24 History injection solution Past Med/Surg History Medical History (Updated 01/06/24 @ 06:14 by Titus Vallecillo MD) PCOS (polycystic ovarian syndrome) Insomnia Lupus (systemic lupus erythematosus) IBS (irritable bowel syndrome) HX Rheumatoid arthritis Depression Morbid obesity Ovarian cyst RESOLVED Kidney stones Hidradenitis suppurativa Anxiety Migraine Asthma STABLE > HASNT USED INH IN OVER A YEAR Surgical History History of cystoscopy WITH STONE REMOVAL History of lithotripsy History of esophagogastroduodenoscopy (EGD) EUS/EGD= 01/17/16= GRADE 1 VIEW, MAC 3, ETT 7.0 AT [facility] (ATRAUMATIC DVL X 1) History of colonoscopy History of cholecystectomy History of surgery GASTRIC SLEEVE 11/14/17 History of tooth extraction WISDOM TEETH Family History Grandmother Cancer Grandfather Cancer Father Family history of esophageal cancer Mother Family hx colonic polyps Family/Other Family hx colonic polyps Other Family hx of colon cancer Social History Smoking Status: Never smoker Second Hand Exposure: No; Do You Dip or Chew Tobacco: No; Hx Alcohol Use: Yes Alcohol type: beer Hx Substance Use: No Preferred Language: Georgian Communication Ability: Effective Card Maker Required: No Beliefs That Will Affect Care: None Current Living Situation: Spouse current occupational status: employed Feels Safe at Home: Yes Assistive Devices: Glasses Review of Systems Review of Systems: All systems reviewed & are unremarkable except as noted in HPI & below Physical Exam Constitutional: WD/WN, vitals as above Eyes: PERRL, conjunctivae normal, anicteric sclerae ENMT: external ear and nose normal, oropharynx normal Neck: trachea midline, no thyromegaly Respiratory: normal respiratory effort, lungs clear to auscultation Cardiovascular: RRR, no murmur, no edema Gastrointestinal (Abdomen): normal bowel sounds, soft, nontender, no hepatosplenomegaly Musculoskeletal: no cyanosis or clubbing, extremities motor strength 5/5 Skin: no rashes, warm and dry Neurologic: moves all extremities and awake; no focal motor deficits and not c onfused Speech / Cognition: normal speech Motor/Sensory: + tremor (right hand resting mild); no pronator drift Cranial Nerves: PERRL, EOM intact bilaterally, normal facial strength, tongue midline, able to rotate head bilaterally, able to elevate shoulders bilaterally, no nystagmus and symmetric palate elevation Psychiatric: A+Ox3, euthymic affect Results & Data Results & Data Vital Signs (Past 12 Hours) Vital Signs Temp Pulse Pulse Resp BP BP Pulse Ox 01/05/24 11:00 56 L 18 119/82 98 01/05/24 09:42 63 20 98 01/05/24 09:42 57 L 20 131/96 98 01/05/24 09:04 60 01/05/24 08:48 97 01/05/24 08:39 36.8 C 65 20 156/82 H 97 O2 Del Method 01/05/24 11:00 Room Air 01/05/24 09:42 Room Air 01/05/24 09:42 Room Air 01/05/24 09:04 01/05/24 08:48 Room Air 01/05/24 08:39 Room Air Laboratory Results Abnormal lab results 01/05/24 01/05/24 Range/Units 09:09 Unknown RDW Std Deviation 49.3 H (36.4-46.3) fL Urine pH 8.0 H (4.5-7.5) Ur Specific Steele 1.042 H (1.000-1.030) Diagnostic Findings CT OF THE HEAD WITHOUT CONTRAST CLINICAL HISTORY: Syncope. COMPARISON STUDY: Head CT September 06, 2018. TECHNIQUE: Helical axial images of the head were obtained without IV contrast. Automated exposure control was utilized for the study. A dose lowering technique was utilized adhering to the principles of ALARA. FINDINGS: No acute intracranial hemorrhage, midline shift or mass effect is present. The ventricular system is unremarkable. The basal cisterns are patent. No extra-axial collections are present. There are no findings to suggest acute dural sinus thrombosis or acute territorial infarct. No significant calvarial abnormalities are present. Visualized portions of the sinuses and mastoid air cells are clear. IMPRESSION: No acute intracranial findings. HEAD CTA HISTORY: Headache and syncope TECHNIQUE: Multiaxial CT images of the head were performed following the intravenous administration of contrast to evaluate the major cerebral vessels. 3D/MIP images were also obtained. Sagittal and coronal reformats were reviewed. A dose lowering technique was utilized adhering to the principles of ALARA. COMPARISON: None. FINDINGS: There is no mass, hematoma, midline shift, or acute infarct. Visualized intracranial internal carotid arteries, distal vertebral arteries, and basilar artery are widely patent. There is no significant stenosis, occlusion, or aneurysm seen within the bilateral ACAs, MCAs, or commercial pest control representative. The major dural venous sinuses are patent. IMPRESSION: No significant stenosis, occlusion, or aneurysm within the ely [place] of [place]. CT ANGIOGRAPHY OF THE NECK WITH CONTRAST CLINICAL HISTORY: Headache and syncope. COMPARISON STUDY: No previous studies for comparison. Technique: CT angiography of the carotid and vertebral arteries was obtained using Optiray and 3D reconstruction on an independent workstation. NASCET criteria was utilized. Automated exposure control was utilized for the study. A dose lowering technique was utilized adhering to the principles of ALARA. Findings: Visualized portions of the lung apices are unremarkable. There is no cervical lymphadenopathy. There is no acute cervical spine fracture. Lucency within the anterior arch of C1 is chronic. The bilateral common carotid, cervical internal carotid and vertebral arteries are patent. No stenosis, dissection or aneurysm within these vessels is present. There is no atherosclerotic plaque. IMPRESSION: Unremarkable CTA of the neck. XR chest 1V portable HISTORY: syncope COMPARISON: Chest 06/28/2023. FINDINGS: The lungs are clear. Cardiac silhouette is normal in size. No pleural effusions. No pneumothorax. IMPRESSION: No acute process. Medications Administered ER Medications Given: Normal saline 1L bolus Phenergan 12.5mg IV ECG Rate (beats per minute): 66 Rhythm: sinus with SA Findings: no acute ischemic change Comparison ECG Date: from (Jan 03, 2024) Change: no significant change Code Status & VTE Plan Code Status Full VTE Prophylaxis Plan VTE Prophylaxis will be ordered: No PG Care Time/CCT Total # of Minutes Spent Total Time Spent with Patient: Total time spent is greater than 50% in coordination of care (as documented) at patient's floor/unit and/or counseling patient: Coding Level of Care Code 70844 INT INP/OBS CARE 75MIN Diagnoses Syncope R55 Syncope type: unspecified Headache R51.9 Tremor of right hand R25.1 Perioral numbness R20.0 Insomnia G47.00 Asthmatic bronchitis J45.909 Lupus (systemic lupus erythematosus) M32.9 Rheumatoid arthritis M06.9 Hidradenitis suppurativa L73.2 Morbid obesity E66.01 PCOS (polycystic ovarian syndrome) E28.2 (1) Syncope Syncope type: unspecified Qualified Code(s): R55 - Syncope and collapse
[2024-01-05] MEDS: KETOROLAC 30 MG/ML VIAL IV ONE (14:48)
[2024-01-05 15:36] LABS: Lyme Ab IgG w/WB Rflx Negative (Negative); Lyme Ab IgM w/WB Rflx Negative (Negative)
[2024-01-05] MEDS: GADOBUTROL 65ML VIAL IV ONE (17:37)
--- NOTE | 2024-01-05 18:20 | Magnetic Resonance Report ---
MR brain wo/w con HISTORY: 33 years-old Female right hand tremor, perioral paresethia, headache acute migraine headach e with syncope and head trauma status post fall COMPARISON: Head CT of same day TECHNIQUE: Multiplanar multisequence MRI of the brain was obtained with and without IV contrast FINDINGS: No restricted diffusion. Midline structures are unremarkable. The volume and signal characteristics o f the brain parenchyma are within normal limits. No acute intracranial hemorrhage, midline shift, abn ormal extra-axial collection, hydrocephalus or intra-axial mass. No pathologic blooming artifact The sinuses and major arterial flow voids appear patent. The skull, orbits and soft tissues are unrem arkable. Minimal mucosal thickening of the paranasal sinuses. No abnormal enhancement. IMPRESSION: 1. No acute intracranial abnormality. 2. No abnormal enhancement. ACT 112: Negative or not required by law. The above report was generated using voice recognition software. It may contain grammatical, syntax o r spelling errors. Electronically signed by: Denilson Zaragoza M.D. 01/05/2024 6:18 PM
[2024-01-05] MEDS: FOLIC ACID 1 MG TAB PO SCH (18:28)
[2024-01-05] MEDS: LACTATED RINGER'S 1,000 ML IV SCH (18:28)
[2024-01-05] MEDS: KETOROLAC TROMETHAMINE 15 MG/ML VIAL IV PRN (18:29)
--- NOTE | 2024-01-05 19:02 | XCELERA ---
[id number] \\[email or web address]\[id number]
[2024-01-06] MEDS: ACETAMINOPHEN 1,000 MG/100 ML VIAL IV PRN (00:06)
--- NOTE | 2024-01-06 06:51 | Hospitalist Progress Note ---
Date of Service January 06, 2024 Assessment & Plan (1) Syncope: Plan: Multiple episodes over the past 2 weeks of full syncopal episodes without prodromal symptoms No events on telemetry thus far, no syncopal episodes Orthostatics negative Head CT, Brain MRI, Head/Neck CTA with acute findings Differential: Hypotension tin the setting of gastric bypass, cardiac arrhythmia, vasospasm Plan: trial of IV Solu-Medrol, 125 mg x 1, may follow with a Medrol Dosepak taper, verapamil ER 120 mg at bedtime which may be helpful for Raynaud's, vasospasm as well as migraine prevention Consider Holter monitor as an OP if no events on telemetry while she is here DMV paperwork should be considered prior to discharge if no adequate explanation or no reversible cause of syncope found (2) Headache: Plan: Plan as per above with trial of verapamil qHS (3) Tremor of right hand: Plan: Trial of verapamil, could consider beta venkat is no imporvement. Does have history of well controlled asthma (4) Perioral numbness: Plan: As above for tremor (5) Insomnia: Plan: sleep study to be arranged as outpatient, concenr for GERALDINE (6) Asthmatic bronchitis: Plan: Albuterol PRN (7) Lupus (systemic lupus erythematosus): Plan: Methotrexate 22.5mg PO once weekly Notably patient was not on folic acid supplementation until recently for this (8) Hidradenitis suppurativa: Plan: Reason for Humira weekly (9) Morbid obesity: Plan: Hx gastric sleeve 2017 Admission and Anticipated Discharge Date Admission Date: January 05, 2024 Supervising Physician Co-Signing Physician Notes Attending Physician Supervision Note: I independently interviewed and examined the patient and verified the hunter history and physical, reviewed labs and image studies and agree with findings and care plan noted above. Syncope - no arrhythmia on monitor. Orthostatics negative. no concern for seizure per neuro. concern of dumping syndrome in setting of h/o Gastric Sleeve -- hasn't been able to adhere to her diet in recent 2 wks -Should get cardiac evaluation as outpatient. Outpatient Event monitor. -Outpatient sleep study. -Dietary adherence for possibility of dumping syndrome. -With no clear etiology at this time - will fill out DMV form in am. Cheiro-oral paresthesia - Cheiro-oral symptoms possibly due to migraine and associated vasospasm. has h/o Raynaud's phenomenon. -Trial IV solumedrol followed by medrol dose puneet. -Trial Verapamil for migraine and will help with Raynauds as well. Subjective No further syncopal episodes overnight. Notes that she has been fatigue over the past 2 weeks. No acute complaints this morning. Review of Systems Review of Systems: As per above Physical Exam Physical Exam: Constitutional: well-appearing, no acute distress HEENT: NCAT, no conjunctival injection CV: regular rhythm, no murmur appreciated, extremities well-perfused, no LE edema Resp: CTABL, no wheezes/rales/rhonchi appreciated, no increased work of breathing GI: soft, nondistended, nontender MSK: no gross deformities appreciated Skin: warm, dry, no rash appreciated Neuro: alert, oriented, no focal neurologic deficit appreciated Results & Data Results & Data Vital Signs (Past 12 Hours) Vital Signs Temp Pulse Pulse Resp BP BP Pulse Ox 01/06/24 04:11 36.4 C L 65 18 136/89 95 01/06/24 00:55 36.6 C 64 18 129/90 95 01/05/24 23:30 61 01/05/24 23:28 36.7 C 63 18 107/71 94 01/05/24 20:07 65 16 108/68 95 O2 Del Method 01/06/24 04:11 Room Air 01/06/24 00:55 Room Air 01/05/24 23:30 01/05/24 23:28 Room Air 01/05/24 20:07 Room Air Resident Activity Tracking Resident Involvement: Resident Care Provided Care Provided: Adult Hospital Medicine (1) Syncope Syncope type: unspecified Qualified Code(s): R55 - Syncope and collapse
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
[2024-01-06] MEDS: methylPREDNISolone 125 MG in SYRINGE 0 ML IV ONE (14:54)
[2024-01-06] MEDS: VERAPAMIL HCL 120 MG TABCR PO SCH (20:06)
[2024-01-07] MEDS: methylPREDNISolone 4 MG TAB PO SCH ×2 (06:11→12:21)
[2024-01-07 06:33] LABS: Hematocrit (blood only) 40.3 % (37.0-47.0); Hemoglobin 13.6 g/dl (12.0-16.0); Mean Corpuscular Hemoglobin 31.9 pg (25.0-34.0); Mean Corpuscular Hgb Conc 33.7 g/dL (32.0-36.0); Mean Corpuscular Volume 94.6 fL (80.0-100.0); Mean Platelet Volume 10.4 fL (9.4-12.4); Platelet Count 277 K/uL (130-400); Red Blood Count 4.26 M/uL (4.20-5.40); White Blood Count 14.37 K/ul (4.8-10.8)
[2024-01-07 06:50] LABS: Albumin Globulin Ratio 1.4 (0.9-2); BUN Creatinine Ratio 22.7 (10-20); Bilirubin,Total 0.4 mg/dl (0.2-1.0); Calcium 9.3 mg/dl (8.6-10.3); Est GFR (African American) 133.6 ml/min; Est GFR (Non-African American) 115.3 ml/min; Globulin 2.9 gm/dl (2.5-4.0); Magnesium 1.9 mg/dl (1.7-2.4); Potassium 4.2 mmol/L (3.5-5.1); Total Protein 6.9 gm/dl (6.0-8.3)
[2024-01-07] MEDS: CEROVITE ADV FORMULA TAB PO SCH (08:33)
[2024-01-07] MEDS ORDERED: methylPREDNISolone 4 MG TAB, 6 DAY TAPER PO SCH (14:15)
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
[2024-01-08] MEDS ORDERED: methylPREDNISolone 4 MG TAB PO SCH ×2 (07:00→21:00)
[2024-01-09] MEDS ORDERED: methylPREDNISolone 4 MG TAB PO SCH (07:00)
[2024-01-10] MEDS ORDERED: methylPREDNISolone 4 MG TAB PO SCH (07:00)
[2024-01-11] MEDS ORDERED: methylPREDNISolone 4 MG TAB PO SCH (07:00)
[2024-01-12] MEDS ORDERED: methylPREDNISolone 4 MG TAB PO SCH (07:00)
== END 2024-01-07 16:20 | disposition home or self-care (01) ==
LOC: ED 08:32 → EDINP 08:32 → SUATTDRO 12:18 → 2N 20:31